=== PATIENT | female | born 2000 | race Caucasian/White ===

== ENCOUNTER 2023-10-28 15:07 | Inpatient (IN) | payer BC, SELFPAY ==
[2023-10-28] VITALS (16 sets, daily range): BP systolic 109–139; BP diastolic 65–79; PULSE 113–148; RESP 18–38; TEMP 36.3–38.9; O2SAT 88–100; BMI 44.5
--- NOTE | ~2023-10-28 | US_ITS ---
EXAMINATION: US TRIPLEX LOWER EXTREMITY, BILATERAL CLINICAL INFORMATION: r/o DVT COMPARISON: None available. TECHNIQUE: Color-flow triplex imaging with spectral analysis and compression Doppler were performed on the bilateral lower extremities. FINDINGS: Respiratory variation, normal compression and augmented flow are noted throughout the bilateral lower extremities. The visualized common femoral vein, superficial femoral vein, profunda femoral vein, popliteal vein and midcalf peroneal and posterior tibial venous segments show no evidence of deep venous thrombosis bilaterally. There is no Holm's cyst. US/US venous duplex LE BI IMPRESSION: No evidence of deep venous thrombosis involving the bilateral lower extremities. Electronically signed by: Flo Tellez MD 10/28/2023 08:35 PM EDT
--- NOTE | ~2023-10-28 | CT_ITS ---
EXAMINATION: CT ANGIOGRAM CHEST CLINICAL INFORMATION: Hypoxia, tachycardia COMPARISON: None available. TECHNIQUE: Multiple axial images were obtained through the chest after the administration of 65 mL of Omnipaque 350 intravenous contrast. Multiplanar reconstructions. This CT examination was performed using dose optimization techniques as appropriate, variously including the following: *Automated exposure control *Adjustment of mA and/or kV according to patient size (this includes techniques or standardized protocols for targeted exams where dose is matched to indication/reason for exam; i.e. extremities or head) *Use of iterative reconstruction technique DLP: 493 mGy-cm FINDINGS: PULMONARY ARTERIES: There is significant respiratory motion artifact, markedly degrading images. The pulmonary arteries are suboptimally and not reliably evaluated. No obvious large filling defect is identified in the central pulmonary vasculature.. LUNG: There are extensive areas of confluent airspace disease seen in bilateral hemithoraces, including extensive areas in the right upper and middle lobes, bilateral lower lobes, in the lingula. Imaging findings are nonspecific. Differential considerations include etiologies such as pulmonary edema, inflammatory/ infectious process, ARDS. PLEURA: No pleural effusion or pneumothorax. MEDIASTINUM: Heart size is borderline prominent. No pericardial effusion. No hilar or mediastinal lymphadenopathy. VASCULAR: Normal caliber aorta. No obvious dissection is seen. CHEST WALL/AXILLA: No axillary or internal mammary lymphadenopathy. OSSEOUS STRUCTURES: Multilevel mild endplate degenerative changes. No acute fracture seen. UPPER ABDOMEN: No reflux of contrast in the IVC or hepatic veins to suggest increased pressures. No acute findings seen in the visualized upper abdominal structures. CT/CT angio chest PE protocol IMPRESSION: 1. Significant artifact markedly degrading images, limiting evaluation. Evaluation for pulmonary embolism is very limited. Recommend repeat study. No obvious large embolus is seen in the central pulmonary vasculature. 2. Extensive confluent airspace opacities in bilateral hemithoraces, of uncertain etiology. Differential considerations include ARDS, pulmonary edema, inflammatory, infectious processes among other etiologies. Clinically correlate. Follow-up imaging for reassessment as clinically warranted. 3. Additional findings and details above. Result and recommendations was discussed with at 6:22 PM on 12/27/2022 and it was ascertained that the content and urgency of the report was understood at the time of direct communication. Fleischner guidelines were followed. Electronically signed by: Scotty Sumner MD 10/28/2023 06:23 PM EDT RP
--- NOTE | ~2023-10-28 | CT_ITS ---
EXAMINATION: CT ANGIOGRAM CHEST CLINICAL INFORMATION: Tachycardia. Hypoxia. Evaluate for pulmonary embolus in. COMPARISON: CTA chest dated 10/28/2023. TECHNIQUE: Prior to contrast administration, noncontrast localization images were obtained. Subsequently, multidetector volumetric imaging was performed from the thoracic inlet to below the diaphragms following the administration of 70 mL Omnipaque 350 intravenous contrast. No contrast reaction reported Sagittal, coronal, and MIP oblique sagittal reformatted images were obtained on the CT workstation, uploaded to PACS, and reviewed. This CT examination was performed using dose optimization techniques as appropriate, variously including the following: *Automated exposure control *Adjustment of mA and/or kV according to patient size (this includes techniques or standardized protocols for targeted exams where dose is matched to indication/reason for exam; i.e. extremities or head) *Use of iterative reconstruction technique DLP: 518 mGy-cm FINDINGS: QUALITY OF STUDY/CONTRAST BOLUS: Satisfactory. PULMONARY ARTERIES: No pulmonary emboli. THORACIC AORTA: No aneurysm. LUNG: Patchy bilateral airspace opacities with air programs, significantly decreased when compared to the CT chest dated 10/28/2023. No new airspace consolidation. The central airways are patent. PLEURA: No pleural effusion or pneumothorax. MEDIASTINUM: Normal heart size. No pericardial effusion. No hilar or mediastinal lymphadenopathy. No evidence of septal bowing or right heart strain. CORONARY ARTERY CALCIFICATION: None visualized on this study. CHEST WALL/AXILLA: No axillary or internal mammary lymphadenopathy. OSSEOUS STRUCTURES: No acute or suspicious osseous abnormality. UPPER ABDOMEN: Unremarkable. No reflux of contrast into the hepatic veins to suggest elevated right heart pressures. CT/CT angio chest PE protocol IMPRESSION: 1. No pulmonary embolism. 2. Patchy bilateral airspace opacities with air programs, significantly decreased when compared to the CT chest dated 10/28/2023. No new airspace consolidation. VTE: negative. Fleischner guidelines were followed. Electronically signed by: Osvaldo Mckeon MD 11/06/2023 11:10 AM EDT
--- NOTE | 2023-10-28 15:13 | ECG_ITS ---
Test Reason : SOB Blood Pressure : / mmHG Vent. Rate : 141 BPM Atrial Rate : 141 BPM P-R Int : 120 ms QRS Dur : 084 ms QT Int : 278 ms P-R-T Axes : 035 060 037 degrees QTc Int : [address] elevation in Inferior leads ST elevation in Lateral leads Abnormal ECG No previous ECGs available Referred By: Waleska Peralta Electronically Signed By:HERNESTO CESAR
[2023-10-28] MEDS: levalbuterol HCL 5 MG, Ipratropium Bromide 0.5 MG INHALE (15:51)
--- NOTE | 2023-10-28 15:55 | ED_ITS ---
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 She went to urgent care today and they found her sats to be 55% on RA - they obtained a covid test / flu test which was negative. EMS was called and patient was maintained on NRB with sats in 70s. Vania denies a hx of OCP use, prior clots, recent travel or hotel stay. She is not immunocompromised. She has had 4 COVID vaccines. She notes she is in college right now so everyone is sick. On arrival to ED required 80% NIPPV to maintain sats > 90% otherwise sats in 70s. Sent over for STAT CTA MD elicited complaint: shortness of breath Onset (ago): week(s) (1) Context: recent illness Timing: progressively worsening Severity: severe Exacerbating factors: exertion, movement and coughing Relieving factors: oxygen and rest Associated symptoms: fever, cough, sputum production, nausea/vomiting and sense of impending doom Treatment prior to arrival: oxygen Related Data Home Medications ?Medication ?Instructions ?Recorded ?Confirmed citalopram 40 mg tablet 40 mg PO DAILY 10/28/23 10/28/23 ibuprofen 200 mg tablet 200 mg PO Q6H PRN Pain 10/28/23 10/28/23 Allergies Allergy/AdvReac Type Severity Reaction Status Date / Time No Known Allergies Allergy Verified 10/28/23 15:13 Review of Systems 2 Review of Systems: Constitutional : pos Fever, pos Chills ENT/Mouth : No sore throat, No Rhinorrhea, No Swallowing Difficulty Eyes: No Eye Pain, No Swelling, No Redness Cardiovascular : No Chest Pain, positive SOB, No Orthopnea, no Edema Respiratory : pos Cough, pos Sputum, No Wheezing, positive dyspnea Gastrointestinal : pos Nausea, No Vomiting, No Diarrhea, No abdominal Pain, No Hematochezia, No Melena Genitourinary : No Dysuria, No Urinary Frequency, No Hematuria Musculoskeletal : No joint pain, pos Myalgias Skin : No Skin Lesions, No rash Neuro : No Weakness, No Numbness, No Dizziness, No Headache Psych : No Anxiety/Panic, No Depression All other systems reviewed and are negative [facility] Past Medical History Attestation statement: The following information was validated with the patient. Source: old records reviewed Medical History Brain tumor Social History Social History (Updated 10/28/23 @ 16:56 by Waleska Peralta DO) Patient Tobacco Use Status: Never used Tobacco Advance Directives: No Advance Directives Information Provided: No Do you have a plan to hurt others: No Plan Patient : No Physical Exam 2 Vital Signs: Vital Signs: Last Vital Signs Temp 98.6 F 10/28/23 18:05 Pulse 123 H 10/28/23 18:05 Resp 29 H 10/28/23 18:05 BP 118/65 10/28/23 18:05 Pulse Ox 94 10/28/23 18:05 O2 Del Method CPAP 10/28/23 18:05 FiO2 100 10/28/23 17:53 BMI result Body Mass Index 44.5 Appearance: Alert. Oriented X3. Moderate acute distress. Eyes: Pupils equal, round and reactive to light. ENT: Pharynx normal. Neck: Normal inspection. Neck supple. CVS: tachycardic heart rate and rhythm. Pulses normal. Respiratory: Moderate respiratory distress. Breath sounds coarse and diminished throughout she is labored and tachypneic with retractions and can only speak 2 to 3 words at a time Abdomen: Soft and nontender. Skin: Skin hot to touch and dry. pale skin color. Normal skin turgor. Extremities: No lower extremity edema. Neuro: Oriented X 3. No motor deficit. No sensory deficit. Course Course Course Narrative: signed out to Dr. Pizano following repeat labs and admission 10/28/2023 at 19:03 hours,Dr. Be Pizano's note: I did speak to the [facility] radiologist regarding the CT pulmonary angiogram PE protocol. He states that the study was nondiagnostic for pulmonary embolism secondary to respiratory artifact and he recommended repeating the study if pulmonary embolism was still considered. I did review the reading below. He states the patient had diffuse bilateral infiltrates consistent with an ARDS pattern. I did discuss this over tiger text with our diesel trailer mechanic, Dr. Barcenas and the patient has been accepted into the intensive care unit for further management. I also discuss this finding with the patient and the patient's family and I do not think that the patient has a pulmonary embolism at this time and more likely has atypical versus viral pneumonia causing ARDS patient did have a elevated initial troponin of 476 with a repeat 2 hour troponin of 442 which is not a greater than 50% delta suggesting that the patient has type 2 injury most likely secondary to hypoxia. CT angio chest PE protocol IMPRESSION: 1. Significant artifact markedly degrading images, limiting evaluation. Evaluation for pulmonary embolism is very limited. Recommend repeat study. No obvious large embolus is seen in the central pulmonary vasculature. 2. Extensive confluent airspace opacities in bilateral hemithoraces, of uncertain etiology. Differential considerations include ARDS, pulmonary edema, inflammatory, infectious processes among other etiologies. Clinically correlate. Follow-up imaging for reassessment as clinically warranted. 3. Additional findings and details above. Result and recommendations was discussed with at 6:22 PM on 12/27/2022 and it was ascertained that the content and urgency of the report was understood at the time of direct communication. Fleischner guidelines were followed. Electronically signed by: Scotty Sumner MD 10/28/2023 06:23 PM EDT Dictated By: Scotty Sumner MD Medications Administered Discontinued Medications Generic Name Dose Route Start Last Admin Trade Name Freq PRN Reason Stop Dose Admin Levalbuterol HCl 5 mg/ 0 mg 10/28/23 15:22 10/28/23 15:51 Ipratropium Bascom 0.5 mg INHALE 10/28/23 15:23 1 dose ONCE ONE Administration Dexamethasone Sodium Phosphate 6 mg 10/28/23 15:22 10/28/23 16:16 Dexamethasone Sod Phosphate 4 Mg/Ml Vial IVPUSH 10/28/23 15:23 6 mg ONCE ONE Administration Cefepime HCl 2 gm/ Sodium 50 mls @ 100 mls/hr 10/28/23 15:18 10/28/23 17:15 Chloride IV 10/28/23 15:47 Infused ONCE ONE Infusion Acetaminophen 1,000 mg in 100 mls @ 400 mls/hr 10/28/23 15:18 10/28/23 16:34 Ofirmev IV 10/28/23 15:32 Infused ONCE ONE Infusion Lactated Ringer's 500 mls @ 999 mls/hr 10/28/23 15:55 10/28/23 17:42 Lr IV 10/28/23 16:25 Infused .Q31M ONE Infusion Vancomycin HCl 2,000 mg in 500 mls @ 250 mls/hr 10/28/23 15:58 10/28/23 16:54 Vancomycin/Ns IV 10/28/23 17:57 250 mls/hr ONCE ONE Administration Iohexol 65 ml 10/28/23 16:00 10/28/23 16:01 Iohexol 350 Mg/Ml 100 Ml Infus..Btl IV 10/28/23 16:01 65 ml ONCE ONE Administration Medical Decision Making Medical Decision Making MDM Narrative: 23 yo female with PMH of 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 The patient received IV steroids on arrival 6mg dexamethasone in case this is COVID or pneumonitis, empiric cefepime and vancomycin (post flu pneumonia). She did not tolerate O2 other than pressure supported. Planned admit to ICU. Has elevated troponin no signs of pedal edema on arrival and no hx of CHF though could have a myocarditis - troponin could also be elevated due to her prolonged hypoxia. [phone] Dr. Radha Groves die grinder provided significant amount of information over the phone last chemo 09/29 Stable MRI yearly every september including 10/07. 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 Barcenas aware 430pm bed not available in our ICU until 7pm) Lab Data MDM Lab Attestation statement: I reviewed the patient's lab results. 10/28/23 15:53 10/28/23 15:53 Labs: Lab Results 10/28/23 10/28/23 10/28/23 Range/Units 15:53 15:54 16:07 WBC 17.0 H (4.8-10.8) X10*3/uL RBC 4.53 (4.20-5.50) X10*6/uL Hgb 10.5 L (12.0-16.0) g/dl Hct 33.8 L (37.0-47.0) % MCV 74.6 L (80.0-98.0) fL MCH 23.2 L (27.0-33.0) pg MCHC 31.1 (31.0-35.0) g/dl RDW 18.0 H (11.0-16.0) % Plt Count 312 (160-400) X10*3/uL MPV 11.4 (9.4-12.3) fL Immature Gran % (Auto) Cancelled Neut % (Auto) Cancelled Lymph % (Auto) Cancelled [place] % (Auto) Cancelled Eos % (Auto) Cancelled Baso % (Auto) Cancelled Lymph # (Auto) Cancelled [place] # (Auto) Cancelled Eos # (Auto) Cancelled Baso # (Auto) Cancelled Abs Immat Gran (auto) Cancelled Absolute Neuts (auto) Cancelled Absolute Nucleated RBC 0.080 H (0.0-0.012) X10*3/uL Nucleated RBC % (auto) 0.5 H (0.0-0.2) /100WBC Neutrophils % (Manual) 72 (45-73) % Band Neutrophils % 7 H (3-5) % Lymphocytes % (Manual) 12 L (20-40) % Monocytes % (Manual) 8 (2-11) % Basophils % (Manual) 1 (0-2) % Abs Neuts (Manual) 13.4 H (2.0-8.3) X10*3/uL Lymphocytes # (Manual) 2.0 (1.2-4.9) X10*3/uL Monocytes # (Manual) 1.4 H (0.1-1.2) X10*3/uL Basophils # (Manual) 0.2 (0.0-0.2) X10*3/uL Platelet Estimate NORMAL (NORMAL) Plt Morphology Comment NORMAL RBC Morphology NORMAL PT 14.6 H (11.1-13.3) SEC INR 1.2 H (0.9-1.1) O2 Saturation 91.0 % ABG pH at Pt Temp 7.43 (7.35-7.45) ABG pCO2 at Pt Temp 44 (32-45) mmHg ABG pO2 at Pt Temp 68 L (83-108) mmHg ABG HCO3 29 H (22-26) mmol/L ABG Base Excess (Actual) 4.6 mmol/L VBG pH 7.38 (7.32-7.43) VBG pCO2 49 mmHg VBG pO2 63 mmHg VBG HCO3 30 H (22-26) mmol/L VBG O2 Saturation 88.0 % VBG Base Excess 4.1 mmol/L Sodium 138 (135-145) mmol/L Potassium 4.4 (3.3-5.1) mmol/L Chloride 98 (96-108) mmol/L Carbon Dioxide 27 (22-29) mmol/L Anion Gap 17 (12-20) BUN 32 H (9-16) mg/dL Creatinine 0.91 (0.5-1.4) mg/dL Estim Creat Clear Calc 127.7 Estimated GFR > 60 Random Glucose 120 H (60-115) mg/dL Lactic Acid 1.5 (0.5-2.0) mmol/L Calcium 8.7 (8.4-10.2) mg/dL Magnesium 2.6 (1.6-2.6) mg/dL Total Bilirubin 0.4 (0.0-1.0) mg/dL Direct Bilirubin 0.3 (0.0-0.5) mg/dL AST 354 H (5-31) U/L ALT 203 H (0-31) U/L Alkaline Phosphatase 59 (39-117) U/L Troponin I High Sens 476.7 H* (<3.5-17.0) ng/L C-Reactive Protein 39.82 H (< or = 0.50) mg/dL B-Natriuretic Peptide 428 H (<100) pg/mL Total Protein 6.8 (6.5-8.0) g/dL Albumin 3.2 L (3.5-5.0) g/dL Lipase 9 (8-78) U/L Urine Color Urine Appearance Urine pH (5.0-9.0) Ur Specific [place] (1.005-1.025) Urine Protein (Neg-Trace) mg/dL Urine Glucose (UA) (Negative) mg/dL Urine Ketones (Negative) mg/dL Urine Blood (Negative) Urine Nitrite (Negative) Ur Leukocyte Esterase (Negative) Influenza Type A (PCR) NEGATIVE (Negative) Influenza Type B (PCR) NEGATIVE (Negative) RSV RNA Qual (PCR) NEGATIVE (Negative) SARS-CoV-2 RNA (RT-PCR) NEGATIVE (Negative) 10/28/23 10/28/23 Range/Units 17:14 18:39 WBC (4.8-10.8) X10*3/uL RBC (4.20-5.50) X10*6/uL Hgb (12.0-16.0) g/dl Hct (37.0-47.0) % MCV (80.0-98.0) fL MCH (27.0-33.0) pg MCHC (31.0-35.0) g/dl RDW (11.0-16.0) % Plt Count (160-400) X10*3/uL MPV (9.4-12.3) fL Immature Gran % (Auto) Neut % (Auto) Lymph % (Auto) [place] % (Auto) Eos % (Auto) Baso % (Auto) Lymph # (Auto) [place] # (Auto) Eos # (Auto) Baso # (Auto) Abs Immat Gran (auto) Absolute Neuts (auto) Absolute Nucleated RBC (0.0-0.012) X10*3/uL Nucleated RBC % (auto) (0.0-0.2) /100WBC Neutrophils % (Manual) (45-73) % Band Neutrophils % (3-5) % Lymphocytes % (Manual) (20-40) % Monocytes % (Manual) (2-11) % Basophils % (Manual) (0-2) % Abs Neuts (Manual) (2.0-8.3) X10*3/uL Lymphocytes # (Manual) (1.2-4.9) X10*3/uL Monocytes # (Manual) (0.1-1.2) X10*3/uL Basophils # (Manual) (0.0-0.2) X10*3/uL Platelet Estimate (NORMAL) Plt Morphology Comment RBC Morphology PT (11.1-13.3) SEC INR (0.9-1.1) O2 Saturation % ABG pH at Pt Temp (7.35-7.45) ABG pCO2 at Pt Temp (32-45) mmHg ABG pO2 at Pt Temp (83-108) mmHg ABG HCO3 (22-26) mmol/L ABG Base Excess (Actual) mmol/L VBG pH (7.32-7.43) VBG pCO2 mmHg VBG pO2 mmHg VBG HCO3 (22-26) mmol/L VBG O2 Saturation % VBG Base Excess mmol/L Sodium (135-145) mmol/L Potassium (3.3-5.1) mmol/L Chloride (96-108) mmol/L Carbon Dioxide (22-29) mmol/L Anion Gap (12-20) BUN (9-16) mg/dL Creatinine (0.5-1.4) mg/dL Estim Creat Clear Calc Estimated GFR Random Glucose (60-115) mg/dL Lactic Acid (0.5-2.0) mmol/L Calcium (8.4-10.2) mg/dL Magnesium (1.6-2.6) mg/dL Total Bilirubin (0.0-1.0) mg/dL Direct Bilirubin (0.0-0.5) mg/dL AST (5-31) U/L ALT (0-31) U/L Alkaline Phosphatase (39-117) U/L Troponin I High Sens 442.8 H* (<3.5-17.0) ng/L C-Reactive Protein (< or = 0.50) mg/dL B-Natriuretic Peptide (<100) pg/mL Total Protein (6.5-8.0) g/dL Albumin (3.5-5.0) g/dL Lipase (8-78) U/L Urine Color Yellow Urine Appearance Clear Urine pH 6.0 (5.0-9.0) Ur Specific [place] >= 1.030 H (1.005-1.025) Urine Protein 30 (1+) H (Neg-Trace) mg/dL Urine Glucose (UA) Negative (Negative) mg/dL Urine Ketones Negative (Negative) mg/dL Urine Blood Small (1+) H (Negative) Urine Nitrite Negative (Negative) Ur Leukocyte Esterase Negative (Negative) Influenza Type A (PCR) (Negative) Influenza Type B (PCR) (Negative) RSV RNA Qual (PCR) (Negative) SARS-CoV-2 RNA (RT-PCR) (Negative) Independent Interpretation I performed an independent interpretation of an: EKG and CT Scan (bilateral multifocal pneumonia, no saddle emobolus seen) Interpretation: Rate: 141 Rhythm: sinus tachycardia [place]: noraml Normal P waves. Normal NATASHA. Normal QRS complex. ST T wave : no JC qTC: 425 prior studies: no prior The study has been interpreted contemporaneously by me. . Independent Historian Clinical information obtained from an independent historian. History obtained from or confirmed by: EMS Procedures Procedure Narrative Procedure Narrative: Ultrasound-guided peripheral IV October 28, 2023, 4:40 p.m. Indication: Difficult to access, RN able to obtain. Imaging studies needed. 18 gauge needle, 2-1/2 inch Right brachial Obtained on 1st attempt. Secured and flushed. RN notified. EJ/Peripheral Line Arm L: Time Out Performed: Yes Size (gauge): 20 IV Secured and Dressing Applied: Yes Patient Tolerated Procedure: well and no complications Arm R: Time Out Performed: Yes Skin Cleansed in Sterile Fashion: Yes Size (gauge): 18 IV Secured and Dressing Applied: Yes Patient Tolerated Procedure: well and no complications Critical Care Time Critical Care Time Critical Care Time: Yes Total Critical Care Time: 60 Attestation: hypoxia correction with NIPPV, interpretation of abg, consult with diesel trailer mechanic, STAT CTA for concern for VTE and saddle as cause Discharge Plan Discharge Clinical Impression: Hypoxia, Multifocal pneumonia Elevated WBC count Qualifiers: Leukocytosis type: bandemia Qualified Code(s): D72.825 - Bandemia Fever Qualifiers: Fever type: unspecified Qualified Code(s): R50.9 - Fever, unspecified Patient Disposition: Admitted As Inpatient Print Language: Tajik
[2023-10-28] MEDS: iohexoL 350 MG/ML 100 ML INFUS..BTL 65 ML IV (16:01)
[2023-10-28 16:03] LABS: ABG Base Excess 4.6 mmol/L; ABG HCO3 29 mmol/L (22-26); ABG pCO2 44 mmHg (32-45); ABG pH 7.43 (7.35-7.45); ABG pO2 68 mmHg (83-108)
[2023-10-28 16:10] LABS: Hematocrit 33.8 % (37.0-47.0); Hemoglobin 10.5 g/dl (12.0-16.0); Mean Corpuscular HGB Conc 31.1 g/dl (31.0-35.0); Mean Corpuscular Hemoglobin 23.2 pg (27.0-33.0); Mean Corpuscular Volume 74.6 fL (80.0-98.0); Mean Platelet Volume 11.4 fL (9.4-12.3); NRBC Pct Auto 0.5 /100WBC (0.0-0.2); Platelet Count 312 X10*3/uL (160-400); Red Blood Count 4.53 X10*6/uL (4.20-5.50)
[2023-10-28 16:11] LABS: VBG Base Excess 4.1 mmol/L; VBG HCO3 30 mmol/L (22-26); VBG pCO2 49 mmHg; VBG pH 7.38 (7.32-7.43); VBG pO2 63 mmHg
[2023-10-28] MEDS: Acetaminophen 1,000 MG/100 ML PIGGYBACK 400 MG IV (16:13)
[2023-10-28] MEDS: Lactated Ringers 500 ML 999 ML IV (16:14)
[2023-10-28] MEDS: dexAMETHasone sod phosphate 4 MG/ML VIAL 6 MG IVPUSH (16:16)
--- NOTE | 2023-10-28 16:18 | PC.RT ---
PT came in via EMS on CPAP 15L, SATs 85%, RR >40. Pt switched over to V60 BIPAP 18/10 100% by RT, SATs improved to low 90's. Pt brought to CT scan on BIPAP, teto well for approx 30 min. Pt brought back to ED room 4, SATs on BIPAP 18/10 80% were 96%. ABG drawn and results given to MD Peralta 7.42-43.7-68.1-28.9. Bronch protocol performed by RT, lungs tight and restricted, given xopenex and atrovent as documented. Pt is currently resting on BIPAP 18/10 80%, SATs 94% HR 140 RR 35. Will continue to monitor and make changes as appropriate.
[2023-10-28 16:19] LABS: INTERNATIONAL NORM RATIO 1.2 (0.9-1.1); Prothrombin Time 14.6 SEC (11.1-13.3)
[2023-10-28 16:24] LABS: Lactic Acid 1.5 mmol/L (0.5-2.0)
[2023-10-28 16:26] LABS: Venous Blood Gas Refer to POC result
[2023-10-28] MEDS: cefEPime HCl 2 GM in 0.9 % Sodium Chloride 50 ML IV (16:33)
[2023-10-28 16:36] LABS: B Type Natriuretic Peptide 428 pg/mL (<100)
[2023-10-28 16:44] LABS: Band Neutrophils Percent 7 % (3-5); Basophils Abs Manual 0.2 X10*3/uL (0.0-0.2); Basophils Percent Manual 1 % (0-2); Lymphocytes Percent Manual 12 % (20-40); Monocytes Absolute Manual 1.4 X10*3/uL (0.1-1.2); Monocytes Percent Manual 8 % (2-11); Neutrophils Absolute Manual 13.4 X10*3/uL (2.0-8.3); Neutrophils Percent Manual 72 % (45-73)
[2023-10-28 16:46] LABS: Platelet Estimate NORMAL (NORMAL); Platelet Morphology Comment NORMAL; RBC Morphology NORMAL
[2023-10-28 16:47] LABS: Troponin-I High Sensitivity 476.7 ng/L (<3.5-17.0)
[2023-10-28] MEDS: vancomycin/NS 2,000 MG/500 ML PLAST..BAG 250 MG IV (16:54)
--- NOTE | 2023-10-28 17:23 | PHA.MEDREC ---
Pharmacy Consult ? Medication Reconciliation Pharmacy has completed the medication reconciliation. Spoke to patient and confirmed medication list.
[2023-10-28 17:31] LABS: Influenza A PCR NEGATIVE (Negative); Influenza B PCR NEGATIVE (Negative); Resp Syncy Virus RNA Qual PCR NEGATIVE (Negative); SARS COV2 PCR INHOUSE NEGATIVE (Negative)
[2023-10-28 18:04] LABS: Troponin-I High Sensitivity 442.8 ng/L (<3.5-17.0)
[2023-10-28 18:49] LABS: Appearance Urine Clear; Color Urine Yellow; Glucose Urine UA Negative (Negative); Leukocyte Esterase Urine Negative (Negative); Nitrite Urine Negative (Negative); Specific Gravity - Urine >= 1.030 (1.005-1.025); UMIC TRIGGER UACC YES; Urine Blood Small (1+) (Negative); Urine Ketones Negative (Negative); Urine Protein 30 (1+) mg/dL (Neg-Trace)
[2023-10-28 18:50] LABS: Alanine Aminotransferase 203 U/L (0-31); Albumin Level 3.2 g/dL (3.5-5.0); Alkaline Phosphatase 59 U/L (39-117); Anion Gap 17 (12-20); Aspartate Amino Transferase 354 U/L (5-31); Bilirubin Direct 0.3 mg/dL (0.0-0.5); Bilirubin Total 0.4 mg/dL (0.0-1.0); Blood Urea Nitrogen 32 mg/dL (9-16); C Reactive Protein 39.82 mg/dL (< or = 0.50); Calcium 8.7 mg/dL (8.4-10.2); Carbon Dioxide 27 mmol/L (22-29); Chloride 98 mmol/L (96-108); Creatinine Clr Calc Pharmacy 127.7; Estimated Glomerular Filt Rate > 60; Glucose Random 120 mg/dL (60-115); Lipase 9 U/L (8-78); Magnesium 2.6 mg/dL (1.6-2.6); Potassium 4.4 mmol/L (3.3-5.1); Sodium 138 mmol/L (135-145); Total Protein 6.8 g/dL (6.5-8.0)
[2023-10-28 19:07] LABS: Bacteria Urine 4+ (None Seen); Hyaline Casts Urine 0-2 /LPF (0-2); WBC Urine 0-5 /HPF (0-5)
--- NOTE | 2023-10-28 19:24 | MHC.EDTECH ---
This pct assumed care of patient at 1900 ,vitals taken ,patient belonigs list done ,Pt mom is talking pt belongings home ,except for cell phone and medical representative .
[2023-10-28 19:33] LABS: Procalcitonin 2.25 ng/mL
--- NOTE | 2023-10-28 20:18 | P.HPCC_ITS ---
History of Present Illness Date of Service: 10/28/23 Attending physician on admission: Cas Barcenas Chief Complaint: Sob HPI: ?23-year-old female who is not able to give a history at this point.? Majority of the history obtained from the patient's mother who is at bedside.? Patient has an underlying 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 Postop complications of her glioma included NPH for which she had a HEEL CEMENTER shunt placement.? 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 Patient is a college student, had reported to mom to have a cough, malaise for about a week, she finallywas able to go to the [facility] and she was found to be significantly ill therefore she was transferred to emergency room. In the ER she was noted to be hypoxic at 88% a room air, tachycardic 146 febrile with 102 degrees F.? Subsequently she became tachypneic at 30 breaths per minute.? Due to her respiratory distress patient was placed on CPAP and then switched to BiPAP. Initial gas showed pH was 7.3 and CO2 44 and pO2 of 68. Patient's workup revealed white count 74832, H and H of 10.5 and 33.8 respectively.? Bandemia of 7. ?Sodium 130, potassium 4.4, chloride 98, BUN 32, creatinine 0.91.? Random glucose 120.? SAT 54, ALT 203, troponin were 76 and 442, CRP 39 point 8, BNP 428, albumin 3.2. ?Respiratory panel negative for COVID. She underwent a CT angiogram, read as a limited study due to artifact.? No obvious large emboli.? Extensive confluent airspace opacity and bilateral hemithoraces of uncertain etiology.? Differential diagnosis ARDS, pulmonary edema, inflammatory, infectious process among others.? Recommendation was made to repeat the study in 24 hours. Patient was treated with vancomycin and cefepime, only 500 cc of fluids were given due to risk of fluid overload.? Currently the patient is arousable with light touch, follows basic commands although she is somewhat slow in comparison to her baseline but likely due to tiredness, otherwise able to answer yes and no questions and do basic maneuvers but unable to give a history. Patient will be transferred to the ICU for further care. Review of Systems 2 Review of Systems: Yes Unobtainable due to mental condition (on bipap) [facility] Past Medical History Medical History Brain tumor Social History Social History Household Members: Other Household Members Other:: from home with parents/sibling; at college/dorm currently Housing: House Do you presently have visiting nurse or other home services: No Patient Tobacco Use Status: Never used Tobacco Smoked in Last 30 Days: No e-Cigarette/Vaping Use: Never Used Use of substances other than those prescribed or required for medical reasons: No Currently Displaying Signs/Symptoms of Drug Intoxication Withdrawal: No Any prior treatment program specific to substance use: No Have you been hit, kicked, punched, or otherwise hurt by someone within the past year? If so, by whom?: No Do you feel safe in your current relationship?: No Current Relationship Is there a partner from a previous relationship who is making you feel unsafe now?: No Are you made to feel afraid or neglected: No [facility] Pract[facility]: [facility] Advance Directives: No Advance Directives Information Provided: No Do you have a plan to hurt others: No Plan Recently lost weight without trying: No Nutrition Risks: No Nutritional Risk Patient : No : No Poor oral hygiene: No Travel History Ebola Risk: Travel/Contact With Anyone From Affected Area/s: No Meds Allergies Allergy/AdvReac Type Severity Reaction Status Date / Time No Known Allergies Allergy Verified 10/28/23 15:13 Active Medications: Current Medications Albuterol Sulfate (Albuterol Sulfate (0.083%) 2.5 Mg/3 Ml Vial.Neb) 2.5 mg INHALE Q2H PRN PRN Reason: Wheezing Albuterol/Ipratropium (Albuterol/Iprat 2.5/0.5mg 3 Ml Ampul.Neb) 3 ml INHALE Q6H TOM Apixaban (Apixaban 5 Mg Tablet) 10 mg PO BID TOM Stop: 11/04/23 09:01 Azithromycin 500 mg/ Sodium (Chloride) 250 mls @ 125 mls/hr IV Q24H TOM Ceftriaxone Sodium 1 gm/ (Sodium Chloride) 50 mls @ 100 mls/hr IV Q24H TOM Lactated Ringer's (Lr) 1,000 mls @ 100 mls/hr IVCONT .Q10H [facility] Methylprednisolone Sodium Succinate (Methylprednisolone Sod Succ 125 Mg/2 Ml Vial) 60 mg IVPUSH Q8H [facility] Home Medications ?Medication ?Instructions ?Recorded ?Confirmed ?Last Taken ?Type citalopram 40 mg tablet 40 mg PO DAILY 10/28/23 10/28/23 10/27/23 History ibuprofen 200 mg tablet 200 mg PO Q6H PRN Pain 10/28/23 10/28/23 Unknown History Physical Exam 2 Vital Signs: Vital Signs: Last Vital Signs Temp 97.7 F 10/28/23 19:54 Pulse 121 H 10/28/23 19:54 Resp 24 H 10/28/23 19:54 BP 109/72 10/28/23 19:54 Pulse Ox 94 10/28/23 19:54 O2 Del Method BiPAP 10/28/23 19:54 FiO2 100 10/28/23 19:54 BMI result Body Mass Index 44.5 Sepsis exam done at 1999 On BiPAP support at 18 over 10, backup rate of 20 breathing at 32, FiO2 100% satting 92% VS: ?109/72, 121, 24, 97.7, 94% on BiPAP General:? Alert oriented; seems tired.? Answers yes and no questions.? Following all commands. Skin:? 2+ stenting throughout upper and lower extremities, no edema Intact, no lesions, edema, erythema, clubbing or cyanosis.? No ulcers. HEENT:? Head is normocephalic, atraumatic, pupils equal round. On BiPAP, oral mucosa dry. Neck is supple without lymphadenopathy. Cardiac:? Tachycardic 110 beats per minute, no murmurs, rubs or gallops. ? Pulmonary: ?Diminished lung sounds bilaterally with coarseness and rhonchi at both bases right greater than left.? No crackles.? Minimal expiratory wheezing anteriorly only. Abdomen:? Protuberant, positive bowel sounds in all 4 quadrants.? Soft, nontender, no rebound or guarding.? Musculoskeletal:? Moving all 4 extremities upon request a major joints, there is no crepitus or tenderness.? The strength is 5/5 bilaterally and throughout all 4 extremities.? There is no leg edema , no calf tenderness , no leg asymmetry.? Gait not assessed at this point. Neurologic:? As above, cranial nerves 2-12 are grossly intact.? No focal deficits noted. Vascular:? 2+ pulses upper and lower extremities distally. ?Less than 2nd capillary refill of the finger and toes bilaterally upper and lower extremities. Results Labs 10/29/23 05:33 10/29/23 05:33 Labs: Laboratory Results - last 24 hr 10/28/23 10/28/23 10/28/23 15:53 15:54 16:07 MCV 74.6 L MCH 23.2 L MCHC 31.1 RDW 18.0 H Plt Count 312 MPV 11.4 Immature Gran % (Auto) Cancelled Neut % (Auto) Cancelled Lymph % (Auto) Cancelled [place] % (Auto) Cancelled Eos % (Auto) Cancelled Baso % (Auto) Cancelled Lymph # (Auto) Cancelled [place] # (Auto) Cancelled Eos # (Auto) Cancelled Baso # (Auto) Cancelled Abs Immat Gran (auto) Cancelled Absolute Neuts (auto) Cancelled Absolute Nucleated RBC 0.080 H Nucleated RBC % (auto) 0.5 H Neutrophils % (Manual) 72 Band Neutrophils % 7 H Lymphocytes % (Manual) 12 L Monocytes % (Manual) 8 Basophils % (Manual) 1 Abs Neuts (Manual) 13.4 H Lymphocytes # (Manual) 2.0 Monocytes # (Manual) 1.4 H Basophils # (Manual) 0.2 Platelet Estimate NORMAL Plt Morphology Comment NORMAL RBC Morphology NORMAL PT 14.6 H INR 1.2 H O2 Saturation 91.0 ABG pH at Pt Temp 7.43 ABG pCO2 at Pt Temp 44 ABG pO2 at Pt Temp 68 L ABG HCO3 29 H ABG Base Excess (Actual) 4.6 VBG pH 7.38 VBG pCO2 49 VBG pO2 63 VBG HCO3 30 H VBG O2 Saturation 88.0 VBG Base Excess 4.1 Anion Gap 17 Estim Creat Clear Calc 127.7 Estimated GFR > 60 Random Glucose 120 H Lactic Acid 1.5 Calcium 8.7 Magnesium 2.6 Total Bilirubin 0.4 Direct Bilirubin 0.3 AST 354 H ALT 203 H Alkaline Phosphatase 59 Troponin I High Sens 476.7 H* C-Reactive Protein 39.82 H B-Natriuretic Peptide 428 H Total Protein 6.8 Albumin 3.2 L Lipase 9 Procalcitonin 2.25 Urine Color Urine Appearance Urine pH Ur Specific [place] Urine Protein Urine Glucose (UA) Urine Ketones Urine Blood Urine Nitrite Ur Leukocyte Esterase Urine RBC Urine WBC Ur Squamous Epith Cells Urine Bacteria Hyaline Casts Influenza Type A (PCR) NEGATIVE Influenza Type B (PCR) NEGATIVE RSV RNA Qual (PCR) NEGATIVE SARS-CoV-2 RNA (RT-PCR) NEGATIVE 10/28/23 10/28/23 17:14 18:39 MCV MCH MCHC RDW Plt Count MPV Immature Gran % (Auto) Neut % (Auto) Lymph % (Auto) [place] % (Auto) Eos % (Auto) Baso % (Auto) Lymph # (Auto) [place] # (Auto) Eos # (Auto) Baso # (Auto) Abs Immat Gran (auto) Absolute Neuts (auto) Absolute Nucleated RBC Nucleated RBC % (auto) Neutrophils % (Manual) Band Neutrophils % Lymphocytes % (Manual) Monocytes % (Manual) Basophils % (Manual) Abs Neuts (Manual) Lymphocytes # (Manual) Monocytes # (Manual) Basophils # (Manual) Platelet Estimate Plt Morphology Comment RBC Morphology PT INR O2 Saturation ABG pH at Pt Temp ABG pCO2 at Pt Temp ABG pO2 at Pt Temp ABG HCO3 ABG Base Excess (Actual) VBG pH VBG pCO2 VBG pO2 VBG HCO3 VBG O2 Saturation VBG Base Excess Anion Gap Estim Creat Clear Calc Estimated GFR Random Glucose Lactic Acid Calcium Magnesium Total Bilirubin Direct Bilirubin AST ALT Alkaline Phosphatase Troponin I High Sens 442.8 H* C-Reactive Protein B-Natriuretic Peptide Total Protein Albumin Lipase Procalcitonin Urine Color Yellow Urine Appearance Clear Urine pH 6.0 Ur Specific [place] >= 1.030 H Urine Protein 30 (1+) H Urine Glucose (UA) Negative Urine Ketones Negative Urine Blood Small (1+) H Urine Nitrite Negative Ur Leukocyte Esterase Negative Urine RBC 3-5 H Urine WBC 0-5 Ur Squamous Epith Cells 6-10 Urine Bacteria 4+ Hyaline Casts 0-2 Influenza Type A (PCR) Influenza Type B (PCR) RSV RNA Qual (PCR) SARS-CoV-2 RNA (RT-PCR) Imaging Radiologist's Impressions: Impressions Chest CTA 10/28/23 15:37 IMPRESSION: 1. Significant artifact markedly degrading images, limiting evaluation. Evaluation for pulmonary embolism is very limited. Recommend repeat study. No obvious large embolus is seen in the central pulmonary vasculature. 2. Extensive confluent airspace opacities in bilateral hemithoraces, of uncertain etiology. Differential considerations include ARDS, pulmonary edema, inflammatory, infectious processes among other etiologies. Clinically correlate. Follow-up imaging for reassessment as clinically warranted. 3. Additional findings and details above. Result and recommendations was discussed with at 6:22 PM on 12/27/2022 and it was ascertained that the content and urgency of the report was understood at the time of direct communication. Fleischner guidelines were followed. Electronically signed by: Scotty Sumner MD 10/28/2023 06:23 PM EDT RP Assessment and Plan (1) Acute sepsis: Status: Acute (2) Multifocal pneumonia: Status: Acute Plan ASSESSMENT : 1. Acute sepsis 2. Acute hypoxic respiratory failure 3. Acute respiratory distress to the above 4. Bilateral community-acquired pneumonia 5. Microcytic anemia rule out iron deficiency 6. Reactive troponinemia likely stress myopathy unlikely ACS 7. Acute kidney injury due to volume depletion and insensible losses with BUN to creatinine ratio of 35 8. Reactive transaminitis likely due to illness shocked liver syndrome 9. Morbid obesity 10. History of normal pressure hydrocephalus status post HEEL CEMENTER shunt 11. History of hypothalamic suprasellar glioma status post resection and chemotherapy back in 2014. PLAN OF CARE: Patient will be admitted to the ICU, monitor vital signs, I's and O's, she has not voided but bladder scan shows 700 cc of urine in the bladder, continue with gentle IV fluids (patient did not receive 30 mL/kilogram due to risk of fluid overload and already evidence of possible pulmonary edema who CT), albumin, Rocephin and Zithromax, sputum culture and Gram stain, continue with BiPAP support with low threshold for intubation if she worsens or tires out.? Will add iron panel, repeat laboratories and gas. ?Ultrasound of bilateral lower extremities. I had a lengthy discussion with the patient's mother who is a nurse regarding transfer and our inability to do so at this point for the patient is noticed stable enough.? However, if the patient deteriorates and requires intubation we can then consider transfer to the facility of choice.? She kindly asked me to discuss the case with my director Dr. Barcenas, who agrees with my assessment and will further discuss the case with the mother in the morning. If the patient was to deteriorate from the respiratory standpoint or end-organ damage, only then we could consider transferred to [facility]. ?However she understands that this would likely be indicates she requires intubation and transfer with no happen in the middle of the night.? Hopefully she improves. In the meantime given the there is a possibility the patient could have a pulmonary emboli as the study suboptimal, will give her Eliquis 10 mg p.o. b.i.d. until full 24 hours have passed and the patient could have a repeat CT angiogram. Patient did have some bronchospastic CT, I added Solu-Medrol, DuoNebs and albuterol. GI PROPHYLAXIS: ?Famotidine DVT PROPHYLAXIS: ?Full-dose Eliquis until CTA can be repeated Sepsis focussed follow up exam done at 0210 am 10/29/2023 On BiPAP support at 18 over 10, backup rate of 20 breathing at 32, FiO2 90% satting 92% VS: ?137/75, 105, 26, 97.7, General:? Alert oriented; seems tired still but more awake than before. Cardiac:? Tachycardic 110 beats per minute, no murmurs, rubs or gallops. ? Pulmonary: Still?Diminished lung sounds bilaterally with coarseness and rhonchi at both bases right greater than left.? No crackles.? Minimal expiratory wheezing anteriorly only. Abdomen:? Protuberant, positive bowel sounds in all 4 quadrants.? Soft, nontender, no rebound or guarding.? Neurologic:? As above, No focal deficits noted. Vascular:? 2+ pulses upper and lower extremities distally. ?Less than 2nd capillary refill of the finger and toes bilaterally upper and lower extremities. Continue with the above mentioned care, gentle IVF, patient is voiding about 75cc/hr, BP stable, labs improving. ? Critical care time used for critical evaluation of this patient, diagnosis, treatment and coordination of care, review her records and documentation TOTAL CRITICAL CARE TIME?120 MIN . discussion and coordination with consultants, completely separate from any procedures performed. ?
[2023-10-28] MEDS: methylPREDNISolone Sod Succ 125 MG/2 ML VIAL IVPUSH (20:25)
[2023-10-28] MEDS: Lactated Ringers 1,000 ML 100 ML IVCONT (20:25)
[2023-10-28] MEDS: Albuterol/Iprat 2.5/0.5MG 3 ML AMPUL.NEB INHALE (20:29)
[2023-10-28] MEDS: cefTRIAXone sodium 1 GM in 0.9 % Sodium Chloride 50 ML IV ×2 (20:31→21:57)
[2023-10-28] MEDS: Albumin Human 25 % 100 ML 133.33 ML IV ×2 (20:58→21:43)
[2023-10-28] MEDS: Azithromycin 500 MG in 0.9 % Sodium Chloride 250 ML 125 MG IV (21:05)
[2023-10-28] MEDS: Apixaban 5 MG TABLET 10 MG PO (21:59)
[2023-10-28 22:04] LABS: Hematocrit 30.8 % (37.0-47.0); Hemoglobin 9.7 g/dl (12.0-16.0); Mean Corpuscular HGB Conc 31.5 g/dl (31.0-35.0); Mean Corpuscular Hemoglobin 23.3 pg (27.0-33.0); NRBC Pct Auto 0.3 /100WBC (0.0-0.2); Platelet Count 281 X10*3/uL (160-400); Red Blood Count 4.16 X10*6/uL (4.20-5.50); White Blood Count 15.2 X10*3/uL (4.8-10.8)
[2023-10-28 22:13] LABS: Lactic Acid 1.5 mmol/L (0.5-2.0)
[2023-10-28 22:18] LABS: Alanine Aminotransferase 200 U/L (0-31); Albumin Level 3.9 g/dL (3.5-5.0); Alkaline Phosphatase 54 U/L (39-117); Anion Gap 15 (12-20); Aspartate Amino Transferase 301 U/L (5-31); Bilirubin Total 0.5 mg/dL (0.0-1.0); Blood Urea Nitrogen 23 mg/dL (9-16); Carbon Dioxide 26 mmol/L (22-29); Chloride 105 mmol/L (96-108); Estimated Glomerular Filt Rate > 60; Glucose Random 175 mg/dL (60-115); Potassium 4.2 mmol/L (3.3-5.1); Sodium 142 mmol/L (135-145); Total Protein 7.2 g/dL (6.5-8.0)
[2023-10-28 22:25] LABS: ABG Refer to POC result
[2023-10-28 22:27] LABS: Venous Blood Gas Refer to POC result
[2023-10-28 22:27] LABS: VBG HCO3 28 mmol/L (22-26); VBG pCO2 41 mmHg; VBG pH 7.44 (7.32-7.43); VBG pO2 113 mmHg
[2023-10-28 22:29] LABS: Atypical Lymph Absolute Manual 0.2 x10*3/uL; Atypical Lymphs Percent Manual 1 % (0-6); Band Neutrophils Percent 24 % (3-5); Large Platelet PRESENT; Lymphocytes Absolute Manual 1.2 X10*3/uL (1.2-4.9); Lymphocytes Percent Manual 8 % (20-40); Monocytes Absolute Manual 0.2 X10*3/uL (0.1-1.2); Monocytes Percent Manual 1 % (2-11); Neutrophils Absolute Manual 13.7 X10*3/uL (2.0-8.3); Neutrophils Percent Manual 66 % (45-73); Platelet Estimate NORMAL (NORMAL); Platelet Morphology Comment NOTED; RBC Morphology NOTED
[2023-10-28 22:30] LABS: Hypochromasia 1+ (5-14) /OIF; Ovalocytes 1+ (5-14) /OIF; Smudge Cells PRESENT
[2023-10-29] VITALS (42 sets, daily range): BP systolic 123–158; BP diastolic 64–96; PULSE 104–126; RESP 19–42; TEMP 36.6–37; O2SAT 82–98; BMI 43.0
[2023-10-29] MEDS: methylPREDNISolone Sod Succ 125 MG/2 ML VIAL 60 MG IVPUSH ×2 (01:19→08:08)
[2023-10-29] MEDS: Albuterol/Iprat 2.5/0.5MG 3 ML AMPUL.NEB INHALE ×4 (02:22→19:55)
[2023-10-29] MEDS: Lactated Ringers 1,000 ML 100 ML IVCONT ×2 (03:53→14:04)
[2023-10-29 05:41] LABS: Venous Blood Gas Refer to POC result
[2023-10-29 05:47] LABS: VBG Base Excess 7.9 mmol/L; VBG HCO3 33 mmol/L (22-26); VBG pCO2 50 mmHg; VBG pH 7.42 (7.32-7.43); VBG pO2 56 mmHg
[2023-10-29 05:53] LABS: Mean Corpuscular HGB Conc 30.3 g/dl (31.0-35.0); Mean Corpuscular Hemoglobin 23.2 pg (27.0-33.0); Mean Corpuscular Volume 76.6 fL (80.0-98.0); Mean Platelet Volume 10.9 fL (9.4-12.3); NRBC Pct Auto 0.5 /100WBC (0.0-0.2); PLT CLUMP 1; Red Blood Count 4.31 X10*6/uL (4.20-5.50); Red Cell Distribution Width 18.5 % (11.0-16.0)
[2023-10-29 05:56] LABS: White Blood Count 13.4 X10*3/uL (4.8-10.8)
[2023-10-29 06:00] LABS: Alanine Aminotransferase 214 U/L (0-31); Albumin Level 3.8 g/dL (3.5-5.0); Alkaline Phosphatase 51 U/L (39-117); Anion Gap 16 (12-20); Aspartate Amino Transferase 262 U/L (5-31); Bilirubin Total 0.3 mg/dL (0.0-1.0); Blood Urea Nitrogen 18 mg/dL (9-16); Calcium 9.2 mg/dL (8.4-10.2); Carbon Dioxide 28 mmol/L (22-29); Chloride 104 mmol/L (96-108); Creatinine Clr Calc Pharmacy 181.6; Estimated Glomerular Filt Rate > 60; Glucose Random 169 mg/dL (60-115); Phosphorus 2.3 mg/dL (2.7-4.5); Potassium 4.6 mmol/L (3.3-5.1); Sodium 143 mmol/L (135-145); Total Protein 7.2 g/dL (6.5-8.0)
[2023-10-29 06:23] LABS: Iron 20 mcg/dL (30-160); Percent Iron Saturation 9 % (15-50); Total Iron Binding Capacity 216 mcg/dL (228-428); Unsaturated Iron Binding 196 ug/dL
[2023-10-29] MEDS: Famotidine/PF 20 MG/2 ML VIAL IVPUSH (06:27)
[2023-10-29 06:45] LABS: Band Neutrophils Percent 25 % (3-5); Lymphocytes Absolute Manual 0.9 X10*3/uL (1.2-4.9); Lymphocytes Percent Manual 7 % (20-40); Metamyelocytes Absolute 0.1 X10*3/uL; Metamyelocytes Percent 1 %; Monocytes Absolute Manual 0.4 X10*3/uL (0.1-1.2); Monocytes Percent Manual 3 % (2-11); Neutrophils Absolute Manual 11.9 X10*3/uL (2.0-8.3); Neutrophils Percent Manual 64 % (45-73)
[2023-10-29 06:46] LABS: Burr Cells 1+ (0-2) /OIF; Howell Jolly Bodies PRESENT; Large Platelet PRESENT; Macrocytosis 1+ (5-14) /OIF; Ovalocytes 1+ (5-14) /OIF; Platelet Estimate NORMAL (NORMAL); Platelet Morphology Comment NOTED; RBC Morphology NOTED; Smudge Cells PRESENT
--- NOTE | 2023-10-29 07:00 | PC.NURSE ---
Assumed care of patient at 17:45. Patient seen in the ED awaiting ICU bed assignment and transfer orders pending results of CTA and labs on assuming care. On bipap 18/10/100% with spo2 maintained low to mid 90?s and RR mid 20?s to upper 30?s. Breathing even and unlabored without retractions or distress. No cough noted. Pt awake and alert, speaking clear sentences beneath bipap. +HARDIN and desats when attempted to assist patient to bedside commode to void. Pt voided 100ml concentrated, odorless cyu. Patient assisted back to bed and purewick placed for further voiding due to activity intolerance. U/A sent as ordered. Critical troponin back 442.8 at 18:[address] Pizano verbally notified, no new orders advised. CTA results called to Dr. Pizano from [place] [facility]; updated pt and her mother Anju of results with this film writer present at bedside.? 19:45 Patient accepted to ICU and transferred on bipap by this film writer and respiratory therapist to ICU. SHOAIB Llanos orders for labs, LR at 100ml/hr, ceftriaxone, azithromycin, and albumin. U/S of BLE ordered and obtained to r/o DVT. Pt on prophylactic eliquis.? Pt noted to be diaphoretic in the evening with difficulty obtaining accurate temporal and reliable axillary temperature at the time, skin warm to touch. Given tachycardia and tachypnea, need for accurate temperature to rule out fever was discussed with the pt and her mother present at the bedside. Pt verbalized she was agreeable to staff obtaining a rectal temp to assess for fever, temp 97.6 rectally. Pt was yet to void since earlier in the ED. SHOAIB Manriquez verbal orders at 21:45 to increase LR to 200ml/hr from 100ml/hr.? 22:20: Patient still without void since ED. Bladder scan done showing 731ml. Purewick in place, patient encouraged to void and able to produce 800ml odorless, concentrated cyu. PVR assessed showing 59ml. SHOAIB verbal order to return LR rate to initial 100ml/hr, done as requested. VBG resulted reviewed with PA and RT, Fio2 decreased to 90% by RT which patient tolerated.? HR improved overnight from initial 110?s-120?s to low 100?s-110's. No further diaphoresis noted. Fio2 decreased to 80% by RT at ~02:30 though pt unable to maintain spo2 per goal; Fio2 increased back to 90% by 03:30 by RT with improvement in spo2.? Patient tolerated 90% Fio2. No sputum produced; unable to send sputum cx as ordered. Breathing remains even and unlabored without distress. PO care provided.?Repositioned q2h. Handoff report given to oncoming RN.???
[2023-10-29] MEDS: Apixaban 5 MG TABLET 10 MG PO ×2 (08:09→20:06)
--- NOTE | 2023-10-29 11:03 | PC.RT ---
Pt awake on bipap, family in room. HFNC att to give pt a break from Bipap mask. With RT/RN remaining at bedside the pt was placed on HFNC 100% fio2 and 55lpm. Pt teto fair but was noted to desaturate to 75% within 5 mins. Bipap was replaced on pt who fairly quickly recovered to >90%, hfnc on standby. Will reattempt for pt comfort again later in the shift
[2023-10-29 11:04] LABS: D Dimer High Sensitivity 1703 NG/ML
[2023-10-29 11:05] LABS: Adenovirus PCR Not Detected (Not Detect.); Bordetella parapertussis PCR Not Detected (Not Detect.); Bordetella pertussis PCR Not Detected (Not Detect.); Chlamydia pneumoniae PCR Not Detected (Not Detect.); Coronavirus 229E PCR Not Detected (Not Detect.); Coronavirus HKU1 PCR Not Detected (Not Detect.); Coronavirus NL63 PCR Not Detected (Not Detect.); Coronavirus OC43 PCR Not Detected (Not Detect.); Human metapneumovirus PCR Not Detected (Not Detect.); Influenza A PCR Not Detected (Not Detect.); Influenza B PCR Not Detected (Not Detect.); Mycoplasma pneumoniae PCR Detected (Not Detect.); Parainfluenza 1 PCR Not Detected (Not Detect.); Parainfluenza 2 PCR Not Detected (Not Detect.); Parainfluenza 3 PCR Not Detected (Not Detect.); Parainfluenza 4 PCR Not Detected (Not Detect.); RSV PCR Not Detected (Not Detect.); Rhino/Enterovirus PCR Not Detected (Not Detect.)
[2023-10-29 11:16] LABS: SARS-CoV-2 PCR Not Detected (Not Detect.)
[2023-10-29 11:45] LABS: Erythrocyte Sedimentation Rate 90 MM/HR (0-20)
[2023-10-29] MEDS: Escitalopram Oxalate 20 MG TABLET PO (12:12)
--- NOTE | 2023-10-29 12:30 | P.PNCC_ITS ---
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 No events overnight. Critical Care Time (minutes): 45 Physical Exam 2 Vital Signs: Vital Signs: Last Vital Signs Temp 97.9 F 10/29/23 12:00 Pulse 117 H 10/29/23 12:00 Resp 36 H 10/29/23 12:00 BP 131/89 10/29/23 12:00 Pulse Ox 92 10/29/23 12:00 O2 Del Method BiPAP 10/29/23 12:00 FiO2 100 10/29/23 12:00 BMI result Body Mass Index 43.0 Const: General: no acute distress, alert and awake Eyes: Sclerae: sclerae normal EOM: EOMs intact bilaterally Neck: Neck: Yes no lymphadenopathy, Yes trachea midline and Yes supple Resp: Effort & Inspection: normal respiratory effort (On BiPAP) A uscultation: crackles (Bibasilar) Cardio: Rate: regular rate Rhythm: regular rhythm Heart sounds: no gallops, no murmurs and no rubs GI: Palpation (GI): Soft to palpation and Other GI palpation findings present ( Nontender) Auscultation: normal bowel sounds Extrem: General: Yes no pedal edema, No clubbing and No cyanosis Objective Data Labs 10/29/23 05:33 10/29/23 05:33 Labs: Laboratory Results - last 24 hr 10/28/23 10/28/23 10/28/23 15:53 15:54 16:07 WBC 17.0 H RBC 4.53 Hgb 10.5 L Hct 33.8 L MCV 74.6 L MCH 23.2 L MCHC 31.1 RDW 18.0 H Plt Count 312 MPV 11.4 Immature Gran % (Auto) Cancelled Neut % (Auto) Cancelled Lymph % (Auto) Cancelled [place] % (Auto) Cancelled Eos % (Auto) Cancelled Baso % (Auto) Cancelled Lymph # (Auto) Cancelled [place] # (Auto) Cancelled Eos # (Auto) Cancelled Baso # (Auto) Cancelled Abs Immat Gran (auto) Cancelled Absolute Neuts (auto) Cancelled Absolute Nucleated RBC 0.080 H Nucleated RBC % (auto) 0.5 H Neutrophils % (Manual) 72 Band Neutrophils % 7 H Lymphocytes % (Manual) 12 L Atypical Lymphs % (Man) Monocytes % (Manual) 8 Basophils % (Manual) 1 Metamyelocytes % Abs Neuts (Manual) 13.4 H Lymphocytes # (Manual) 2.0 Atyp Lymphs # (Manual) Monocytes # (Manual) 1.4 H Basophils # (Manual) 0.2 Metamyelocytes # Smudge Cells Platelet Estimate NORMAL Large Platelets Plt Morphology Comment NORMAL RBC Morphology NORMAL Hypochromasia Macrocytosis Ovalocytes [place] Bodies [place] Cells ESR PT 14.6 H INR 1.2 H D-Dimer High Sensitivty O2 Saturation 91.0 ABG pH at Pt Temp 7.43 ABG pCO2 at Pt Temp 44 ABG pO2 at Pt Temp 68 L ABG HCO3 29 H ABG Base Excess (Actual) 4.6 VBG pH 7.38 VBG pCO2 49 VBG pO2 63 VBG HCO3 30 H VBG O2 Saturation 88.0 VBG Base Excess 4.1 Sodium 138 Potassium 4.4 Chloride 98 Carbon Dioxide 27 Anion Gap 17 BUN 32 H Creatinine 0.91 Estim Creat Clear Calc 127.7 Estimated GFR > 60 Random Glucose 120 H Lactic Acid 1.5 Calcium 8.7 Phosphorus Magnesium 2.6 Iron TIBC % Saturation Unsat Iron Binding Total Bilirubin 0.4 Direct Bilirubin 0.3 AST 354 H ALT 203 H Alkaline Phosphatase 59 Troponin I High Sens 476.7 H* C-Reactive Protein 39.82 H B-Natriuretic Peptide 428 H Total Protein 6.8 Albumin 3.2 L Lipase 9 Procalcitonin 2.25 Urine Color Urine Appearance Urine pH Ur Specific [place] Urine Protein Urine Glucose (UA) Urine Ketones Urine Blood Urine Nitrite Ur Leukocyte Esterase Urine RBC Urine WBC Ur Squamous Epith Cells Urine Bacteria Hyaline Casts Respiratory Panel [place] Adenovirus (Rapid PCR) B.pert (TEM-PCR) B.parapertussis DNA PCR C. pneumoniae DNA (PCR) Coronavirus OC43 (PCR) Coronavirus HKU1 (PCR) Coronavirus 229E (PCR) Coronavirus NL63 (PCR) Human Metapneumovir PCR Influenza A (RT-PCR) Influenza Type A (PCR) NEGATIVE Influenza B (RT-PCR) Influenza Type B (PCR) NEGATIVE M. pneumoniae (PCR) Parainfluenza 1 (PCR) Parainfluenza 2 (PCR) Parainfluenza 3 (PCR) Parainfluenza 4 (PCR) RSV (PCR) RSV RNA Qual (PCR) NEGATIVE Entero/Rhino (PCR) SARS-CoV-2 RNA (RT-PCR) NEGATIVE 10/28/23 10/28/23 10/28/23 16:14 17:14 18:39 WBC RBC Hgb Hct MCV MCH MCHC RDW Plt Count MPV Immature Gran % (Auto) Neut % (Auto) Lymph % (Auto) [place] % (Auto) Eos % (Auto) Baso % (Auto) Lymph # (Auto) [place] # (Auto) Eos # (Auto) Baso # (Auto) Abs Immat Gran (auto) Absolute Neuts (auto) Absolute Nucleated RBC Nucleated RBC % (auto) Neutrophils % (Manual) Band Neutrophils % Lymphocytes % (Manual) Atypical Lymphs % (Man) Monocytes % (Manual) Basophils % (Manual) Metamyelocytes % Abs Neuts (Manual) Lymphocytes # (Manual) Atyp Lymphs # (Manual) Monocytes # (Manual) Basophils # (Manual) Metamyelocytes # Smudge Cells Platelet Estimate Large Platelets Plt Morphology Comment RBC Morphology Hypochromasia Macrocytosis Ovalocytes [place] Bodies [place] Cells ESR PT INR D-Dimer High Sensitivty O2 Saturation ABG pH at Pt Temp ABG pCO2 at Pt Temp ABG pO2 at Pt Temp ABG HCO3 ABG Base Excess (Actual) VBG pH VBG pCO2 VBG pO2 VBG HCO3 VBG O2 Saturation VBG Base Excess Sodium Potassium Chloride Carbon Dioxide Anion Gap BUN Creatinine Estim Creat Clear Calc Estimated GFR Random Glucose Lactic Acid Calcium Phosphorus Magnesium Iron TIBC % Saturation Unsat Iron Binding Total Bilirubin Direct Bilirubin AST ALT Alkaline Phosphatase Troponin I High Sens 442.8 H* C-Reactive Protein B-Natriuretic Peptide Total Protein Albumin Lipase Procalcitonin Urine Color Yellow Urine Appearance Clear Urine pH 6.0 Ur Specific [place] >= 1.030 H Urine Protein 30 (1+) H Urine Glucose (UA) Negative Urine Ketones Negative Urine Blood Small (1+) H Urine Nitrite Negative Ur Leukocyte Esterase Negative Urine RBC 3-5 H Urine WBC 0-5 Ur Squamous Epith Cells 6-10 Urine Bacteria 4+ Hyaline Casts 0-2 Respiratory Panel [place] See Note Adenovirus (Rapid PCR) Not Detected B.pert (TEM-PCR) Not Detected B.parapertussis DNA PCR Not Detected C. pneumoniae DNA (PCR) Not Detected Coronavirus OC43 (PCR) Not Detected Coronavirus HKU1 (PCR) Not Detected Coronavirus 229E (PCR) Not Detected Coronavirus NL63 (PCR) Not Detected Human Metapneumovir PCR Not Detected Influenza A (RT-PCR) Not Detected Influenza Type A (PCR) Influenza B (RT-PCR) Not Detected Influenza Type B (PCR) M. pneumoniae (PCR) Detected A Parainfluenza 1 (PCR) Not Detected Parainfluenza 2 (PCR) Not Detected Parainfluenza 3 (PCR) Not Detected Parainfluenza 4 (PCR) Not Detected RSV (PCR) Not Detected RSV RNA Qual (PCR) Entero/Rhino (PCR) Not Detected SARS-CoV-2 RNA (RT-PCR) Not Detected 10/28/23 10/28/23 10/29/23 21:56 22:03 05:33 WBC 15.2 H 13.4 H RBC 4.16 L 4.31 Hgb 9.7 L 10.0 L Hct 30.8 L 33.0 L MCV 74.0 L 76.6 L MCH 23.3 L 23.2 L MCHC 31.5 30.3 L RDW 18.0 H 18.5 H Plt Count 281 Not Reportable MPV 11.0 10.9 Immature Gran % (Auto) Cancelled Cancelled Neut % (Auto) Cancelled Cancelled Lymph % (Auto) Cancelled Cancelled [place] % (Auto) Cancelled Cancelled Eos % (Auto) Cancelled Cancelled Baso % (Auto) Cancelled Cancelled Lymph # (Auto) Cancelled Cancelled [place] # (Auto) Cancelled Cancelled Eos # (Auto) Cancelled Cancelled Baso # (Auto) Cancelled Cancelled Abs Immat Gran (auto) Cancelled Cancelled Absolute Neuts (auto) Cancelled Cancelled Absolute Nucleated RBC 0.040 H 0.070 H Nucleated RBC % (auto) 0.3 H 0.5 H Neutrophils % (Manual) 66 64 Band Neutrophils % 24 H 25 H Lymphocytes % (Manual) 8 L 7 L Atypical Lymphs % (Man) 1 Monocytes % (Manual) 1 L 3 Basophils % (Manual) Metamyelocytes % 1 Abs Neuts (Manual) 13.7 H 11.9 H Lymphocytes # (Manual) 1.2 0.9 L Atyp Lymphs # (Manual) 0.2 Monocytes # (Manual) 0.2 0.4 Basophils # (Manual) Metamyelocytes # 0.1 Smudge Cells PRESENT PRESENT Platelet Estimate NORMAL NORMAL Large Platelets PRESENT PRESENT Plt Morphology Comment NOTED NOTED RBC Morphology NOTED NOTED Hypochromasia 1+ (5-14) Macrocytosis 1+ (5-14) Ovalocytes 1+ (5-14) 1+ (5-14) [place] Bodies PRESENT [place] Cells 1+ (0-2) ESR 90 H PT INR D-Dimer High Sensitivty O2 Saturation ABG pH at Pt Temp ABG pCO2 at Pt Temp ABG pO2 at Pt Temp ABG HCO3 ABG Base Excess (Actual) VBG pH 7.44 H VBG pCO2 41 VBG pO2 113 VBG HCO3 28 H VBG O2 Saturation 99.0 VBG Base Excess 4.0 Sodium 142 143 Potassium 4.2 4.6 Chloride 105 104 Carbon Dioxide 26 28 Anion Gap 15 16 BUN 23 H 18 H Creatinine 0.70 0.64 Estim Creat Clear Calc 166.0 181.6 Estimated GFR > 60 > 60 Random Glucose 175 H 169 H Lactic Acid 1.5 Calcium 9.0 9.2 Phosphorus 3.0 2.3 L Magnesium 3.0 H Iron 20 L TIBC 216 L % Saturation 9 L Unsat Iron Binding 196 Total Bilirubin 0.5 0.3 Direct Bilirubin AST 301 H 262 H ALT 200 H 214 H Alkaline Phosphatase 54 51 Troponin I High Sens C-Reactive Protein B-Natriuretic Peptide Total Protein 7.2 7.2 Albumin 3.9 3.8 Lipase Procalcitonin Urine Color Urine Appearance Urine pH Ur Specific [place] Urine Protein Urine Glucose (UA) Urine Ketones Urine Blood Urine Nitrite Ur Leukocyte Esterase Urine RBC Urine WBC Ur Squamous Epith Cells Urine Bacteria Hyaline Casts Respiratory Panel [place] Adenovirus (Rapid PCR) B.pert (TEM-PCR) B.parapertussis DNA PCR C. pneumoniae DNA (PCR) Coronavirus OC43 (PCR) Coronavirus HKU1 (PCR) Coronavirus 229E (PCR) Coronavirus NL63 (PCR) Human Metapneumovir PCR Influenza A (RT-PCR) Influenza Type A (PCR) Influenza B (RT-PCR) Influenza Type B (PCR) M. pneumoniae (PCR) Parainfluenza 1 (PCR) Parainfluenza 2 (PCR) Parainfluenza 3 (PCR) Parainfluenza 4 (PCR) RSV (PCR) RSV RNA Qual (PCR) Entero/Rhino (PCR) SARS-CoV-2 RNA (RT-PCR) 10/29/23 10/29/23 05:39 10:50 WBC RBC Hgb Hct MCV MCH MCHC RDW Plt Count MPV Immature Gran % (Auto) Neut % (Auto) Lymph % (Auto) [place] % (Auto) Eos % (Auto) Baso % (Auto) Lymph # (Auto) [place] # (Auto) Eos # (Auto) Baso # (Auto) Abs Immat Gran (auto) Absolute Neuts (auto) Absolute Nucleated RBC Nucleated RBC % (auto) Neutrophils % (Manual) Band Neutrophils % Lymphocytes % (Manual) Atypical Lymphs % (Man) Monocytes % (Manual) Basophils % (Manual) Metamyelocytes % Abs Neuts (Manual) Lymphocytes # (Manual) Atyp Lymphs # (Manual) Monocytes # (Manual) Basophils # (Manual) Metamyelocytes # Smudge Cells Platelet Estimate Large Platelets Plt Morphology Comment RBC Morphology Hypochromasia Macrocytosis Ovalocytes [place] Bodies [place] Cells ESR PT INR D-Dimer High Sensitivty 1703 O2 Saturation ABG pH at Pt Temp ABG pCO2 at Pt Temp ABG pO2 at Pt Temp ABG HCO3 ABG Base Excess (Actual) VBG pH 7.42 VBG pCO2 50 VBG pO2 56 VBG HCO3 33 H VBG O2 Saturation 85.0 VBG Base Excess 7.9 Sodium Potassium Chloride Carbon Dioxide Anion Gap BUN Creatinine Estim Creat Clear Calc Estimated GFR Random Glucose Lactic Acid Calcium Phosphorus Magnesium Iron TIBC % Saturation Unsat Iron Binding Total Bilirubin Direct Bilirubin AST ALT Alkaline Phosphatase Troponin I High Sens C-Reactive Protein B-Natriuretic Peptide Total Protein Albumin Lipase Procalcitonin Urine Color Urine Appearance Urine pH Ur Specific [place] Urine Protein Urine Glucose (UA) Urine Ketones Urine Blood Urine Nitrite Ur Leukocyte Esterase Urine RBC Urine WBC Ur Squamous Epith Cells Urine Bacteria Hyaline Casts Respiratory Panel [place] Adenovirus (Rapid PCR) B.pert (TEM-PCR) B.parapertussis DNA PCR C. pneumoniae DNA (PCR) Coronavirus OC43 (PCR) Coronavirus HKU1 (PCR) Coronavirus 229E (PCR) Coronavirus NL63 (PCR) Human Metapneumovir PCR Influenza A (RT-PCR) Influenza Type A (PCR) Influenza B (RT-PCR) Influenza Type B (PCR) M. pneumoniae (PCR) Parainfluenza 1 (PCR) Parainfluenza 2 (PCR) Parainfluenza 3 (PCR) Parainfluenza 4 (PCR) RSV (PCR) RSV RNA Qual (PCR) Entero/Rhino (PCR) SARS-CoV-2 RNA (RT-PCR) Microbiology Microbiology Results: Microbiology 10/28/23 16:07 Blood - Venous Blood Culture - Preliminary Prelim: GPC Gram Stain only 10/28/23 16:07 Blood - Venous Blood Culture - Preliminary Prelim: GPC Gram Stain only Progress Note: A&P Assessment and plan (1) Atypical pneumonia: Status: Acute (2) Pneumonia due to gram-positive bacteria: Status: Acute (3) Acute respiratory failure with hypoxia: Status: Acute Plan Assessment: 23-year-old lady admitted with fulminant Gram-positive/atypical pneumonia requiring BiPAP support Plan: Neuro: No acute issues. Cardiac: No acute issues. Pulmonary: Acute hypoxic respiratory failure secondary to Gram- positive/atypical pneumonia now requiring BiPAP support, continue to titrate off as tolerated. Elevated D-dimer, initial CT angio chest suboptimal quality, will repeat CT angio chest. Renal: No acute issues. Endo: No acute issues. GI: No acute issues. ID: Atypical/Gram-positive pneumonia, continue ceftriaxone and azithromycin. Heme/Onc: No acute issues. Psych: No acute issues. Miscellaneous: No acute issues. Prophylaxis: Apixaban Diet: Regular Critical care time spent: 45 minutes Quality Stroke Does the patient have a stroke diagnosis?: No VTE Prior VTE?: No VTE Risk Level:: Medical - moderate - high VTE Device Contraindication: Treatment Not Indicated VTE Drug Contraindication: N/A - Med Ordered
--- NOTE | 2023-10-29 16:07 | PC.RT ---
RT transition pt to HFNC/PNRB for break from Bipap mask. Pt able to maintain spo2 90% on 100% fio2/ 55 lpm and 15 lpm PNRB. RT remained in ICU X 1 hr before returning pt to Bipap. Nursing aware.
[2023-10-29] MEDS: HYDROmorphone HCl 0.5 MG/0.5 ML SYRINGE IVPUSH ×2 (19:35→19:45)
[2023-10-29] MEDS: Azithromycin 500 MG in 0.9 % Sodium Chloride 250 ML 125 MG IV (20:11)
[2023-10-29] MEDS: HYDROmorphone HCl 1 MG/ML SYRINGE IVPUSH (22:31)
[2023-10-29] MEDS: cefTRIAXone sodium 2 GM in 0.9 % Sodium Chloride 50 ML IV (23:01)
--- NOTE | 2023-10-29 23:43 | PC.NURSE ---
Assumed care of pt at 1900. Pt with resp rate 30's-40 and very anxious. O2 sats 84-86%. Both moms at bedside trying to help pt relax. Declan CRAMER at bedside. Pt received dilaudid 0.5mg IVP with some effect but only last a few minutes. Declan ordered another dose of dilaudid 0.5mg IVP. Again with some effect but did not last. Resp therapist gave updraft treatment. Pt had been on Hi flow NC X 20min and returned to bipap facemask. HOB up 60-90degrees. Some improvement with resp rate now 20's. BP stable, afebrile. Later pt became increasingly anxious and 1mg Dilaudid IVP given with good effect. Able to lie pt to wash back, do lauren care and change purewick. Washed face and hair tied back to help bipap mask fit better. Pt repos up in bed with HOB 60-90 degrees. Pt stated she felt much better. Relaxation techniques used. Lights dim and soft music playing. Pt is now resting quietly and O2 sats 87-88%.
[2023-10-30] VITALS (37 sets, daily range): BP systolic 124–169; BP diastolic 59–109; PULSE 21–124; RESP 19–34; TEMP 36.2–36.6; O2SAT 85–93; BMI 44.3
[2023-10-30] MEDS: HYDROmorphone HCl 1 MG/ML SYRINGE IVPUSH ×2 (00:55→04:32)
[2023-10-30] MEDS: Albuterol/Iprat 2.5/0.5MG 3 ML AMPUL.NEB INHALE ×4 (01:39→19:54)
--- NOTE | 2023-10-30 02:11 | PC.NURSE ---
Assumed care of patient at 01:30. Patient spo2 noted to be in the low 80's at this time. Patient had already received prn dilaudid for distress recently and not yet due for another dose. Machine Inspector to the patient's bedside. Patient reported feeling anxious and requested cool cloths to wipe her face and forehead with; this was done by auto service writer per request as well as M-technique to hands and reassurance provided. Both of patient mother's present at the bedside, assisting with verbal reassurance. SHOAIB Manriquez aware of spo2. Respiratory therapy notified and to bedside for breathing treatment. Improvement with interventions in spo2 to mid to upper 80's. Breathing is even and unlabored without distress, tolerating bipap.
[2023-10-30 05:38] LABS: VBG Base Excess 8.4 mmol/L; VBG HCO3 33 mmol/L (22-26); VBG pCO2 45 mmHg; VBG pH 7.46 (7.32-7.43); VBG pO2 62 mmHg
[2023-10-30 05:53] LABS: Hematocrit 30.5 % (37.0-47.0); Hemoglobin 9.6 g/dl (12.0-16.0); Mean Corpuscular HGB Conc 31.5 g/dl (31.0-35.0); Mean Corpuscular Hemoglobin 23.4 pg (27.0-33.0); Mean Corpuscular Volume 74.2 fL (80.0-98.0); Mean Platelet Volume 11.4 fL (9.4-12.3); Platelet Count 304 X10*3/uL (160-400); Red Blood Count 4.11 X10*6/uL (4.20-5.50); Red Cell Distribution Width 18.2 % (11.0-16.0); White Blood Count 22.6 X10*3/uL (4.8-10.8)
[2023-10-30 05:56] LABS: NRBC Pct Auto 1.2 /100WBC (0.0-0.2)
[2023-10-30 06:13] LABS: Alanine Aminotransferase 280 U/L (0-31); Albumin Level 3.6 g/dL (3.5-5.0); Alkaline Phosphatase 63 U/L (39-117); Anion Gap 16 (12-20); Aspartate Amino Transferase 219 U/L (5-31); Bilirubin Total 0.3 mg/dL (0.0-1.0); Blood Urea Nitrogen 21 mg/dL (9-16); Calcium 9.1 mg/dL (8.4-10.2); Carbon Dioxide 28 mmol/L (22-29); Chloride 104 mmol/L (96-108); Estimated Glomerular Filt Rate > 60; Glucose Random 149 mg/dL (60-115); Magnesium 2.9 mg/dL (1.6-2.6); Phosphorus 3.5 mg/dL (2.7-4.5); Potassium 4.8 mmol/L (3.3-5.1); Sodium 143 mmol/L (135-145); Total Protein 6.9 g/dL (6.5-8.0)
[2023-10-30 06:50] LABS: Venous Blood Gas Refer to POC result
[2023-10-30] MEDS: Lactated Ringers 1,000 ML 50 ML IVCONT (07:33)
[2023-10-30] MEDS: methylPREDNISolone Sod Succ 125 MG/2 ML VIAL 60 MG IVPUSH (07:43)
[2023-10-30] MEDS: Escitalopram Oxalate 20 MG TABLET PO (07:43)
[2023-10-30] MEDS: Apixaban 5 MG TABLET 10 MG PO ×2 (07:44→19:55)
[2023-10-30 07:49] LABS: Band Neutrophils Percent 2 % (3-5); Lymphocytes Absolute Manual 0.5 X10*3/uL (1.2-4.9); Lymphocytes Percent Manual 2 % (20-40); Metamyelocytes Absolute 0.5 X10*3/uL; Metamyelocytes Percent 2 %; Monocytes Absolute Manual 0.5 X10*3/uL (0.1-1.2); Monocytes Percent Manual 2 % (2-11); Neutrophils Absolute Manual 21.2 X10*3/uL (2.0-8.3); Neutrophils Percent Manual 92 % (45-73)
[2023-10-30 07:50] LABS: Large Platelet PRESENT; Platelet Estimate INCREASED (NORMAL); Platelet Morphology Comment NOTED; RBC Morphology NORMAL
--- NOTE | 2023-10-30 08:30 | PC.RT ---
Pt awake, nursing has am medication. Pt placed on 100%/55lpm with 15 lpm oxymask over HFNC. Pt able to maintain spo2 85-86%. Off for meds and comfort x 30 min. Spo2 noted 83% and pt returned to Bipap, teto well. Nurse aware.
[2023-10-30] MEDS: Furosemide 20 MG/2 ML VIAL IVPUSH ×2 (09:24→19:55)
[2023-10-30] MEDS: fentaNYL citrate/PF 100 MCG/2 ML VIAL 50 MCG IVPUSH ×4 (09:35→22:15)
--- NOTE | 2023-10-30 11:20 | PM.CCPN ---
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 No events overnight. Critical Care Time (minutes): 45 Physical Exam Vital Signs: Vital Signs: Last Vital Signs Temp 97.1 F 10/30/23 08:00 Pulse 102 H 10/30/23 10:59 Resp 30 H 10/30/23 10:59 BP 130/91 H 10/30/23 10:59 Pulse Ox 91 L 10/30/23 10:59 O2 Del Method BiPAP 10/30/23 10:59 O2 Flow Rate 55 10/29/23 19:44 FiO2 100 10/30/23 10:59 BMI result Body Mass Index 44.3 Const: General: no acute distress, alert and awake Eyes: Sclerae: sclerae normal EOM: EOMs intact bilaterally Neck: Neck: Yes no lymphadenopathy, Yes trachea midline and Yes supple Resp: Effort & Inspection: tachypneic Auscultation: crackles (Diffuse bilateral) Cardio: Rate: tachycardic Rhythm: regular rhythm Heart sounds: no gallops, no murmurs and no rubs GI: Palpation (GI): Soft to palpation and Other GI palpation findings present ( Nontender) Auscultation: normal bowel sounds Extrem: General: No clubbing, No cyanosis and Yes edema (1+ bilateral) Objective Data Labs 10/30/23 05:32 10/30/23 05:32 Labs: Laboratory Results - last 24 hr 10/29/23 10/30/23 10/30/23 05:33 05:27 05:32 WBC 22.6 H RBC 4.11 L Hgb 9.6 L Hct 30.5 L MCV 74.2 L MCH 23.4 L MCHC 31.5 RDW 18.2 H Plt Count 304 MPV 11.4 Immature Gran % (Auto) Cancelled Neut % (Auto) Cancelled Lymph % (Auto) Cancelled [place] % (Auto) Cancelled Eos % (Auto) Cancelled Baso % (Auto) Cancelled Lymph # (Auto) Cancelled [place] # (Auto) Cancelled Eos # (Auto) Cancelled Baso # (Auto) Cancelled Abs Immat Gran (auto) Cancelled Absolute Neuts (auto) Cancelled Absolute Nucleated RBC 0.260 H Nucleated RBC % (auto) 1.2 H Neutrophils % (Manual) 92 H Band Neutrophils % 2 L Lymphocytes % (Manual) 2 L Monocytes % (Manual) 2 Metamyelocytes % 2 Abs Neuts (Manual) 21.2 H Lymphocytes # (Manual) 0.5 L Monocytes # (Manual) 0.5 Metamyelocytes # 0.5 Platelet Estimate INCREASED Large Platelets PRESENT Plt Morphology Comment NOTED RBC Morphology NORMAL ESR 90 H VBG pH 7.46 H VBG pCO2 45 VBG pO2 62 VBG HCO3 33 H VBG O2 Saturation 89.0 VBG Base Excess 8.4 Sodium 143 Potassium 4.8 Chloride 104 Carbon Dioxide 28 Anion Gap 16 BUN 21 H Creatinine 0.67 Estim Creat Clear Calc 170.0 Estimated GFR > 60 Random Glucose 149 H Calcium 9.1 Phosphorus 3.5 Magnesium 2.9 H Total Bilirubin 0.3 AST 219 H ALT 280 H Alkaline Phosphatase 63 Total Protein 6.9 Albumin 3.6 Microbiology Microbiology Results: Microbiology 10/28/23 16:07 Blood - Venous Blood Culture - Preliminary Prelim: GPC Gram Stain only 10/28/23 16:07 Blood - Venous Blood Culture - Preliminary Staphylococcus species Progress Note: A&P Assessment and plan (1) Acute respiratory failure with hypoxia: Status: Acute (2) Pneumonia due to gram-positive bacteria: Status: Acute (3) Atypical pneumonia: Status: Acute Plan Assessment: 23-year-old lady admitted with fulminant Gram-positive/atypical pneumonia requiring BiPAP support Plan: Neuro: No acute issues. Cardiac: No acute issues. Pulmonary: Acute hypoxic respiratory failure secondary to Gram-positive/atypical pneumonia now requiring BiPAP support, continue to titrate off as tolerated. Elevated D-dimer, initial CT angio chest suboptimal quality, will repeat CT angio chest when patient tolerates laying flat. Also with component of pulmonary edema, improving with diuresis. Renal: No acute issues. Endo: No acute issues. GI: No acute issues. ID: Atypical/Gram-positive pneumonia, continue ceftriaxone and azithromycin. Heme/Onc: No acute issues. Psych: No acute issues. Miscellaneous: No acute issues. Prophylaxis: Apixaban Diet: Regular Critical care time spent: 45 minutes Quality Stroke Does the patient have a stroke diagnosis?: No VTE Prior VTE?: No VTE Risk Level:: Medical - moderate - high VTE Device Contraindication: Treatment Not Indicated VTE Drug Contraindication: N/A - Med Ordered
[2023-10-30] MEDS: Albuterol Sulfate (0.083%) 2.5 MG/3 ML VIAL.NEB INHALE (11:43)
[2023-10-30 12:23] LABS: B Type Natriuretic Peptide 75 pg/mL (<100)
[2023-10-30] MEDS: Famotidine/PF 20 MG/2 ML VIAL IVPUSH (14:09)
--- NOTE | 2023-10-30 16:10 | PC.RT ---
Pt off bipap to 100% hfnc with 50 lpm combined with 15 lpm oxymask for relief from Bipap full face mask. Pt teto well with spo2 88-89% for 1 hour before being returned to bipap with under the nose mask. Pt teto well. On bipap with no issue.
[2023-10-30 18:34] LABS: Anion Gap 19 (12-20); Blood Urea Nitrogen 25 mg/dL (9-16); Calcium 9.5 mg/dL (8.4-10.2); Carbon Dioxide 26 mmol/L (22-29); Chloride 103 mmol/L (96-108); Creatinine Clr Calc Pharmacy 170.5; Estimated Glomerular Filt Rate > 60; Glucose Random 173 mg/dL (60-115); Potassium 5.7 mmol/L (3.3-5.1); Sodium 142 mmol/L (135-145)
[2023-10-30] MEDS: Azithromycin 500 MG in 0.9 % Sodium Chloride 250 ML 125 MG IV (19:44)
[2023-10-30] MEDS: cefTRIAXone sodium 2 GM in 0.9 % Sodium Chloride 50 ML IV (19:55)
[2023-10-30 23:59] LABS: Alanine Aminotransferase 289 U/L (0-31); Albumin Level 3.7 g/dL (3.5-5.0); Alkaline Phosphatase 67 U/L (39-117); Anion Gap 16 (12-20); Aspartate Amino Transferase 139 U/L (5-31); Bilirubin Total 0.3 mg/dL (0.0-1.0); Blood Urea Nitrogen 22 mg/dL (9-16); Calcium 9.2 mg/dL (8.4-10.2); Carbon Dioxide 30 mmol/L (22-29); Chloride 100 mmol/L (96-108); Creatinine Clr Calc Pharmacy 163.3; Estimated Glomerular Filt Rate > 60; Glucose Random 128 mg/dL (60-115); Potassium 4.4 mmol/L (3.3-5.1); Sodium 142 mmol/L (135-145)
[2023-10-31] VITALS (36 sets, daily range): BP systolic 119–152; BP diastolic 62–93; PULSE 84–115; RESP 16–36; TEMP 36.4–37.1; O2SAT 89–97; BMI 44.3
[2023-10-31] MEDS: Albuterol/Iprat 2.5/0.5MG 3 ML AMPUL.NEB INHALE ×4 (02:54→20:36)
[2023-10-31] MEDS: fentaNYL citrate/PF 100 MCG/2 ML VIAL 50 MCG IVPUSH ×3 (04:03→20:05)
[2023-10-31 05:26] LABS: VBG Base Excess 9.6 mmol/L; VBG HCO3 31 mmol/L (22-26); VBG pCO2 34 mmHg; VBG pH 7.57 (7.32-7.43); VBG pO2 42 mmHg
[2023-10-31 05:42] LABS: Hematocrit 32.4 % (37.0-47.0); Mean Corpuscular HGB Conc 30.9 g/dl (31.0-35.0); Mean Corpuscular Volume 74.5 fL (80.0-98.0); Mean Platelet Volume 11.7 fL (9.4-12.3); NRBC Pct Auto 1.2 /100WBC (0.0-0.2); Platelet Count 354 X10*3/uL (160-400); Red Blood Count 4.35 X10*6/uL (4.20-5.50); Red Cell Distribution Width 18.4 % (11.0-16.0); White Blood Count 18.8 X10*3/uL (4.8-10.8)
[2023-10-31 05:59] LABS: Alanine Aminotransferase 278 U/L (0-31); Albumin Level 3.7 g/dL (3.5-5.0); Alkaline Phosphatase 62 U/L (39-117); Anion Gap 16 (12-20); Aspartate Amino Transferase 117 U/L (5-31); Bilirubin Total 0.4 mg/dL (0.0-1.0); Blood Urea Nitrogen 25 mg/dL (9-16); Calcium 9.1 mg/dL (8.4-10.2); Carbon Dioxide 30 mmol/L (22-29); Chloride 101 mmol/L (96-108); Creatinine Clr Calc Pharmacy 161.1; Estimated Glomerular Filt Rate > 60; Glucose Random 126 mg/dL (60-115); Magnesium 2.6 mg/dL (1.6-2.6); Phosphorus 4.7 mg/dL (2.7-4.5); Potassium 4.8 mmol/L (3.3-5.1); Sodium 142 mmol/L (135-145); Total Protein 6.8 g/dL (6.5-8.0)
[2023-10-31 06:27] LABS: Atypical Lymph Absolute Manual 0.4 x10*3/uL; Atypical Lymphs Percent Manual 2 % (0-6); Band Neutrophils Percent 12 % (3-5); Eosinophils Absolute Manual 0.2 X10*3/uL (0.0-0.4); Eosinophils Percent Manual 1 % (0-4); Lymphocytes Absolute Manual 1.3 X10*3/uL (1.2-4.9); Lymphocytes Percent Manual 7 % (20-40); Metamyelocytes Absolute 0.9 X10*3/uL; Metamyelocytes Percent 5 %; Monocytes Absolute Manual 1.5 X10*3/uL (0.1-1.2); Monocytes Percent Manual 8 % (2-11); Neutrophils Absolute Manual 14.5 X10*3/uL (2.0-8.3); Neutrophils Percent Manual 65 % (45-73); Nucleated Red Blood Cells 1 /100WBC (0-0)
[2023-10-31 06:29] LABS: Hypochromasia 1+ (5-14) /OIF; Large Platelet PRESENT; Microcytosis 1+ (5-14) /OIF; Ovalocytes 1+ (5-14) /OIF; Platelet Estimate NORMAL (NORMAL); Platelet Morphology Comment NOTED; Polychromasia 1+ (0-2) /OIF; RBC Morphology NOTED; Target Cells 1+ (5-14) /OIF
[2023-10-31 06:38] LABS: Venous Blood Gas Refer to POC result
--- NOTE | 2023-10-31 08:48 | MHC.CM.PN ---
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 She is independent with all functional mobility. She is in ICU on BIBAP support. She has agreed to document a HCP. A copy has been scanned into EMR. DP TBD by patients recovery. She will likely discharge to home self care. A family member will provide transportation home.
[2023-10-31] MEDS: Piperacillin Sodium/Tazobactam 4.5 GM in 0.9 % Sodium Chloride 100 ML IV ×3 (10:12→19:58)
[2023-10-31] MEDS: Escitalopram Oxalate 20 MG TABLET PO (10:12)
[2023-10-31] MEDS: Famotidine/PF 20 MG/2 ML VIAL IVPUSH (10:12)
[2023-10-31] MEDS: methylPREDNISolone Sod Succ 125 MG/2 ML VIAL 40 MG IVPUSH (10:12)
[2023-10-31] MEDS: Apixaban 5 MG TABLET 10 MG PO (10:12)
[2023-10-31] MEDS: rifAMPin 300 MG CAPSULE 600 MG PO (10:12)
--- NOTE | 2023-10-31 11:09 | P.PNCC_ITS ---
Subjective Subjective Date of Service: 10/31/23 Critical Care Time (minutes): 35 Comment: Remained on an IPPV overnight, change to OptiFlow this morning States her breathing is better than before Physical Exam 2 Vital Signs: Vital Signs: Last Vital Signs Temp 98.0 F 10/31/23 09:00 Pulse 115 H 10/31/23 11:00 Resp 29 H 10/31/23 11:00 BP 129/75 10/31/23 11:00 Pulse Ox 93 10/31/23 11:00 O2 Del Method High Flow Nasal C annula 10/31/23 11:00 O2 Flow Rate 50 10/31/23 11:00 FiO2 100 10/31/23 11:00 BMI result Body Mass Index 44.3 General: acute distress, ill appearing Nutritional Appearance: well nourished and overweight Eyes: appearance normal, both eyes and all related structures; Alignment and Position: alignment normal and position normal Neck: No lymphadenopathy, no thyromegaly Resp: bilateral air entry equal, breaths sounds fairly okay bilaterally, decreased breath sounds in both axillary area Cardio: Regular rate, regular rhythm; Heart sounds: S1 normal heart sound present and S2 normal heart sound present GI: soft, nontender, no guarding, no hepatosplenomegaly : bladder normal to inspection, bladder normal to palpation, no renal angle tenderness Skin: no rashes or lesions noted and elasticity normal Neuro: oriented to person, oriented to place, oriented to time and moves all extremities Objective Data Labs 10/31/23 05:21 10/31/23 05:21 Labs: Laboratory Results - last 24 hr 10/30/23 10/30/23 10/30/23 11:39 18:00 23:36 WBC RBC Hgb Hct MCV MCH MCHC RDW Plt Count MPV Immature Gran % (Auto) Neut % (Auto) Lymph % (Auto) [place] % (Auto) Eos % (Auto) Baso % (Auto) Lymph # (Auto) [place] # (Auto) Eos # (Auto) Baso # (Auto) Abs Immat Gran (auto) Absolute Neuts (auto) Absolute Nucleated RBC Nucleated RBC % (auto) Neutrophils % (Manual) Band Neutrophils % Lymphocytes % (Manual) Atypical Lymphs % (Man) Monocytes % (Manual) Eosinophils % (Manual) Metamyelocytes % Abs Neuts (Manual) Lymphocytes # (Manual) Atyp Lymphs # (Manual) Monocytes # (Manual) Eosinophils # (Manual) Metamyelocytes # Nucleated RBCs Platelet Estimate Large Platelets Plt Morphology Comment RBC Morphology Polychromasia Hypochromasia Microcytosis Target Cells Ovalocytes VBG pH VBG pCO2 VBG pO2 VBG HCO3 VBG O2 Saturation VBG Base Excess Sodium 142 142 Potassium 5.7 H 4.4 D Chloride 103 100 Carbon Dioxide 26 30 H Anion Gap 19 16 BUN 25 H 22 H Creatinine 0.68 0.71 Estim Creat Clear Calc 170.5 163.3 Estimated GFR > 60 > 60 Random Glucose 173 H 128 H Calcium 9.5 9.2 Phosphorus Magnesium Total Bilirubin 0.3 AST 139 H ALT 289 H Alkaline Phosphatase 67 B-Natriuretic Peptide 75 Total Protein 7.0 Albumin 3.7 10/31/23 10/31/23 05:16 05:21 WBC 18.8 H RBC 4.35 Hgb 10.0 L Hct 32.4 L MCV 74.5 L MCH 23.0 L MCHC 30.9 L RDW 18.4 H Plt Count 354 MPV 11.7 Immature Gran % (Auto) Cancelled Neut % (Auto) Cancelled Lymph % (Auto) Cancelled [place] % (Auto) Cancelled Eos % (Auto) Cancelled Baso % (Auto) Cancelled Lymph # (Auto) Cancelled [place] # (Auto) Cancelled Eos # (Auto) Cancelled Baso # (Auto) Cancelled Abs Immat Gran (auto) Cancelled Absolute Neuts (auto) Cancelled Absolute Nucleated RBC 0.220 H Nucleated RBC % (auto) 1.2 H Neutrophils % (Manual) 65 Band Neutrophils % 12 H Lymphocytes % (Manual) 7 L Atypical Lymphs % (Man) 2 Monocytes % (Manual) 8 Eosinophils % (Manual) 1 Metamyelocytes % 5 Abs Neuts (Manual) 14.5 H Lymphocytes # (Manual) 1.3 Atyp Lymphs # (Manual) 0.4 Monocytes # (Manual) 1.5 H Eosinophils # (Manual) 0.2 Metamyelocytes # 0.9 Nucleated RBCs 1 H Platelet Estimate NORMAL Large Platelets PRESENT Plt Morphology Comment NOTED RBC Morphology NOTED Polychromasia 1+ (0-2) Hypochromasia 1+ (5-14) Microcytosis 1+ (5-14) Target Cells 1+ (5-14) Ovalocytes 1+ (5-14) VBG pH 7.57 H VBG pCO2 34 VBG pO2 42 VBG HCO3 31 H VBG O2 Saturation 73.0 VBG Base Excess 9.6 Sodium 142 Potassium 4.8 Chloride 101 Carbon Dioxide 30 H Anion Gap 16 BUN 25 H Creatinine 0.72 Estim Creat Clear Calc 161.1 Estimated GFR > 60 Random Glucose 126 H Calcium 9.1 Phosphorus 4.7 H Magnesium 2.6 Total Bilirubin 0.4 AST 117 H ALT 278 H Alkaline Phosphatase 62 B-Natriuretic Peptide Total Protein 6.8 Albumin 3.7 Microbiology Microbiology Results: Microbiology 10/30/23 22:50 Sputum - Expectorated Gram Stain - Final 10/30/23 22:50 Sputum - Expectorated Sputum Culture - Preliminary No growth to date. 10/28/23 16:07 Blood - Venous Blood Culture - Preliminary Staphylococcus aureus Coag negative Staphylococcus 10/28/23 16:07 Blood - Venous Blood Culture - Preliminary Gram positive cocci Progress Note: A&P Assessment and plan (1) Acute respiratory failure with hypoxia: Status: Acute (2) Pneumonia due to gram-positive bacteria: Status: Acute (3) Atypical pneumonia: Status: Acute (4) Acute sepsis: Status: Acute (5) Multifocal pneumonia: Status: Acute (6) Elevated WBC count: Status: Acute Plan Acute hypoxemic respiratory failure: Secondary to bilateral pneumonia as seen on the chest CT CTA negative for any pulmonary embolism Respiratory viral panel positive for mycoplasma, blood cultures positive for staph- oxacillin sensitive Currently on ceftriaxone and azithromycin, antibiotics changed to Zosyn and azithromycin given her severity of illness Currently on 100% FiO2 on the OptiFlow. She was on BiPAP support during the night, if needed we will place her back on BiPAP support during the night. 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
[2023-10-31 14:25] LABS: MRSA Nasal PCR NEGATIVE (Negative); SA Nasal PCR POSITIVE (Negative)
[2023-10-31] MEDS: Azithromycin 500 MG in 0.9 % Sodium Chloride 250 ML 125 MG IV (19:58)
[2023-11-01] VITALS (44 sets, daily range): BP systolic 102–138; BP diastolic 49–91; PULSE 79–112; RESP 15–32; TEMP 36.4–36.9; O2SAT 90–100; BMI 41.9
[2023-11-01] MEDS: fentaNYL citrate/PF 100 MCG/2 ML VIAL 50 MCG IVPUSH ×6 (00:20→23:25)
[2023-11-01] MEDS: 0.9 % Sodium Chloride Flush 3 ML SYRINGE IVFLUSH ×4 (00:21→23:25)
[2023-11-01] MEDS: Piperacillin Sodium/Tazobactam 4.5 GM in 0.9 % Sodium Chloride 100 ML IV ×4 (02:17→21:50)
[2023-11-01] MEDS: Albuterol/Iprat 2.5/0.5MG 3 ML AMPUL.NEB INHALE ×4 (02:24→19:11)
[2023-11-01 05:18] LABS: MANUAL DIFF FLAG NO
[2023-11-01 05:20] LABS: Basophils Absolute Auto 0.1 X10*3/uL (0.0-0.2); Basophils Percent Auto 0.5 % (0-2); Eosinophils Percent Auto 0.1 % (0-4); Hematocrit 33.7 % (37.0-47.0); Hemoglobin 10.3 g/dl (12.0-16.0); Imm Gran Abs Auto 1.77 X10*3/uL (0.00-0.03); Imm Gran Pct Auto 9.6 % (0.0-0.4); Lymphocytes Absolute Auto 2.8 X10*3/uL (1.2-4.9); Lymphocytes Percent Auto 15.4 % (20-40); Mean Corpuscular HGB Conc 30.6 g/dl (31.0-35.0); Mean Corpuscular Hemoglobin 22.8 pg (27.0-33.0); Mean Corpuscular Volume 74.7 fL (80.0-98.0); Mean Platelet Volume 11.3 fL (9.4-12.3); Monocytes Absolute Auto 1.5 X10*3/uL (0.1-1.2); Monocytes Percent Auto 7.9 % (2-11); NRBC Pct Auto 0.4 /100WBC (0.0-0.2); Neutrophils Absolute Auto 12.2 x10*3/uL (2.0-8.3); Neutrophils Percent Auto 66.5 % (45-73); Platelet Count 374 X10*3/uL (160-400); Red Blood Count 4.51 X10*6/uL (4.20-5.50); Red Cell Distribution Width 18.6 % (11.0-16.0); SCAN SMEAR FLAG 1; White Blood Count 18.4 X10*3/uL (4.8-10.8)
[2023-11-01 05:22] LABS: VBG Base Excess 4.4 mmol/L; VBG HCO3 26 mmol/L (22-26); VBG pCO2 31 mmHg; VBG pH 7.53 (7.32-7.43); VBG pO2 52 mmHg
[2023-11-01 05:31] LABS: Venous Blood Gas Refer to POC result
[2023-11-01 05:39] LABS: Alanine Aminotransferase 234 U/L (0-31); Albumin Level 3.7 g/dL (3.5-5.0); Alkaline Phosphatase 58 U/L (39-117); Anion Gap 16 (12-20); Aspartate Amino Transferase 62 U/L (5-31); Bilirubin Total 1.5 mg/dL (0.0-1.0); Blood Urea Nitrogen 19 mg/dL (9-16); Calcium 9.1 mg/dL (8.4-10.2); Carbon Dioxide 26 mmol/L (22-29); Chloride 104 mmol/L (96-108); Creatinine Clr Calc Pharmacy 178.4; Estimated Glomerular Filt Rate > 60; Glucose Random 85 mg/dL (60-115); Magnesium 2.6 mg/dL (1.6-2.6); Phosphorus 4.7 mg/dL (2.7-4.5); Potassium 4.6 mmol/L (3.3-5.1); Sodium 141 mmol/L (135-145); Total Protein 6.9 g/dL (6.5-8.0)
--- NOTE | 2023-11-01 07:00 | CA_ITS ---
Transthoracic Echocardiogram Patient (Last, First, Middle): Vania Childers, Gender: Female Date of : 2000 Age: 23 Procedure Date: 11/01/2023 Procedure Type: Transthoracic Echocardiogram Location: ICU Height: 165.1 cm Weight: 120.66 kg BSA: 2.23 m2 Heart Rate: 81 bpm BP: 143 / 80 mmHg Bricklayer'S Assistant: Referring MD: Sukhdev Shirley MD Forklift Material Handler: Philipp Orta MD Symptoms: staph bacteremia Study Quality: Technically Difficult ECG Rhythm: Sinus Conclusions: - 1. Technically limited study 2. Can not rule out vegetations on this study 3. Normal LV ejection fraction of 60-65% with normal diastolic filling pattern 4. Cardiac valvular Doppler within normal limits although valves are not well visualized 5. Normal calculated RV systolic pressure Findings Procedure Information Contrast agent, definity, is being given per protocol without apparent complications. Left Ventricle Normal left ventricular cavity size. The left ventricular systolic function is normal. The visually estimated ejection fraction is between 60-65%. Spectral Doppler is indicative of a normal filling pattern. Right Ventricle The right ventricle was not well visualized. Atria The left atrium was not well visualized. Interatrial shunt cannot be excluded. The right atrium was not well visualized. Aortic Valve The aortic valve was not well visualized. There is no aortic valve stenosis. There is no aortic valve regurgitation. Mitral Valve The mitral valve was not well visualized. There is no mitral valve regurgitation. There is no mitral valve stenosis. Pulmonic Valve The pulmonic valve was not well visualized. Tricuspid Valve The tricuspid valve was not well visualized. The right ventricular systolic pressure is normal. Great Vessels The aorta was not well visualized. The pulmonary artery was not well visualized. Venous The inferior vena cava was not well visualized. Pericardium/Pleural The pericardium was not well visualized. Prior Study Comparison No prior study available for comparison. Recommendations, Care & Conclusions Consider a JUAQUIN if clinically appropriate. Measurements 2D Linear Measurements IVSd: 1.30 0.6-0.9/0.6-1.0 cm LVIDd: 3.53 3.9-5.3/4.2-5.9 cm LVIDd Index: 1.58 2.4-3.2/2.2-3.1 cm/m2 LVIDs: 2.31 2.0-3.6 cm LVPWd: 1.24 0.7-1.1 cm LA Diam: 4.20 2.7-3.8/3.0-4.0 cm LAIDs Index: 1.88 1.5-2.3 cm/m2 LV Mass: 186.85 67-162/88-224 g LV Mass Index: 83.79 43-95/49-115 g/m2 LVOT Diam: 2.10 3.0+(-)1.3 cm Mitral Valve MV Pk E: 0.83 MV PK A: 0.56 MV Decel Time: 122.00 E/A: 1.50 E'Lateral: 14.40 E'Medial: 9.68 E/E' Med: 8.60 E/E' Lat: 5.80 PHT: 36.00 MVA PHT: 6.11 Decel [place]: 6.81 Aortic Valve AoV Pk Kamran: 1.59 AoV Mn Kamran: 0.93 AoV VTI: 0.27 AoV Pk Grad: 10.00 Aov Mn Grad: 4.00 KASSANDRA Cont.VTI: 2.27 LVOT LVOT Pk Kamran: 1.03 LVOT Mn Kamran: 0.64 LVOT VTI: 0.18 LVOT Pk Grad: 4.00 LVOT Mn Grad: 2.00 LVOT Diam: 2.10 LVOT Area: 3.46 Diastolic Function MV Pk E: 0.83 MV Pk A: 0.56 E/A: 1.50 E'Medial: 9.68 E/E' Med: 8.60 E' Laterial: 14.40 E/E' Lat: 5.80 Tricuspid Valve TR Pk Kamran: 2.33 TR Pk Grad: 22.00 RA Press: 3.00 RVSP: 25.00 Great Vessels Aorta Sinus of Valsalva: 2.20 2.0-3.5 cm Ao Asc: 2.40 2.1-3.4 cm Pulmonary Valve PV Pk Kamran: 1.10 Peak PV Grad: 5.00 Updated in Other Vendor System with Status of Final Philipp Orta MD electronically signed on 11/01/2023 11:35:06 AM with status of Final
[2023-11-01] MEDS: Escitalopram Oxalate 20 MG TABLET PO (08:13)
[2023-11-01] MEDS: rifAMPin 300 MG CAPSULE 600 MG PO (08:13)
[2023-11-01] MEDS: Famotidine/PF 20 MG/2 ML VIAL IVPUSH (08:14)
[2023-11-01] MEDS: methylPREDNISolone Sod Succ 125 MG/2 ML VIAL 40 MG IVPUSH (08:18)
--- NOTE | 2023-11-01 08:32 | P.PNCC_ITS ---
Subjective Subjective Date of Service: 11/01/23 Critical Care Time (minutes): 40 Comment: Oxygen requirement slowly improving On high-flow 80% at 45 liters/minute Was on NIPPV overnight She feels better too Physical Exam 2 Vital Signs: Vital Signs: Last Vital Signs Temp 97.5 F 11/01/23 08:00 Pulse 102 H 11/01/23 08:00 Resp 22 H 11/01/23 08:14 BP 106/72 11/01/23 08:00 Pulse Ox 91 L 11/01/23 08:00 O2 Del Method High Flow Nasal C annula 11/01/23 08:00 O2 Flow Rate 50 11/01/23 08:00 FiO2 90 11/01/23 08:00 BMI result Body Mass Index 41.9 General: ill appearing and tired appearing Nutritional Appearance: well nourished and overweight Eyes: appearance normal, both eyes and all related structures; Alignment and Position: alignment normal and position normal Neck: No lymphadenopathy, no thyromegaly Resp: bilateral air entry equal, occasional added sounds present Cardio: Regular rate, regular rhythm; Heart sounds: S1 normal heart sound present and S2 normal heart sound present GI: soft, nontender, no guarding, no hepatosplenomegaly : bladder normal to inspection, bladder normal to palpation, no renal angle tenderness Skin: no rashes or lesions noted and elasticity normal Neuro: oriented to person, oriented to place, oriented to time and moves all extremities Objective Data Labs 11/01/23 05:13 11/01/23 05:13 Labs: Laboratory Results - last 24 hr 10/31/23 11/01/23 10:15 05:13 WBC 18.4 H RBC 4.51 Hgb 10.3 L Hct 33.7 L MCV 74.7 L MCH 22.8 L MCHC 30.6 L RDW 18.6 H Plt Count 374 MPV 11.3 Immature Gran % (Auto) 9.6 H Neut % (Auto) 66.5 Lymph % (Auto) 15.4 L [place] % (Auto) 7.9 Eos % (Auto) 0.1 Baso % (Auto) 0.5 Lymph # (Auto) 2.8 [place] # (Auto) 1.5 H Eos # (Auto) 0.0 Baso # (Auto) 0.1 Abs Immat Gran (auto) 1.77 H Absolute Neuts (auto) 12.2 H Absolute Nucleated RBC 0.080 H Nucleated RBC % (auto) 0.4 H VBG pH 7.53 H VBG pCO2 31 VBG pO2 52 VBG HCO3 26 VBG O2 Saturation 85.0 VBG Base Excess 4.4 Sodium 141 Potassium 4.6 Chloride 104 Carbon Dioxide 26 Anion Gap 16 BUN 19 H Creatinine 0.65 Estim Creat Clear Calc 178.4 Estimated GFR > 60 Random Glucose 85 Calcium 9.1 Phosphorus 4.7 H Magnesium 2.6 Total Bilirubin 1.5 H AST 62 H ALT 234 H Alkaline Phosphatase 58 Total Protein 6.9 Albumin 3.7 Nasal Screen MRSA (PCR) NEGATIVE Nasal S. aureus Screen POSITIVE A Nasal MRSA/S.aureus Interp SEE NOTE Microbiology Microbiology Results: Microbiology 10/30/23 22:50 Sputum - Expectorated Gram Stain - Final 10/30/23 22:50 Sputum - Expectorated Sputum Culture - Preliminary Culture in progress. 10/28/23 16:07 Blood - Venous Blood Culture - Preliminary Staphylococcus aureus Coag negative Staphylococcus 10/28/23 16:07 Blood - Venous Blood Culture - Preliminary Gram positive cocci Progress Note: A&P Assessment and plan (1) Acute respiratory failure with hypoxia: Status: Acute (2) Pneumonia due to gram-positive bacteria: Status: Acute (3) Atypical pneumonia: Status: Acute (4) Acute sepsis: Status: Acute (5) Multifocal pneumonia: Status: Acute Plan Acute hypoxemic respiratory failure: Secondary to bilateral pneumonia as seen on the chest CT CTA negative for any pulmonary embolism Respiratory viral panel positive for mycoplasma, blood cultures positive for staph- oxacillin sensitive, MRSA nares positive On Zosyn and azithromycin given her severity of illness; we will add Zyvox for MRSA coverage Currently on 80% FiO2 on the OptiFlow at 45 liters/minute. She was placed on BiPAP support during the night, if needed we will place her back on BiPAP support during the night. Leukocytosis: WBC count stable at 18,000 Also on Solu-Medrol Blood cultures positive for staph- oxacillin sensitive Pending repeat blood cultures and TTE Morbid obesity: BMI 44.4 We will work on diet once she is better History of glioma: Not sure if the patient has NAPPER RUNNER shunt Continue rifampin given her staph bacteremia and has a NAPPER RUNNER shunt Cardiac: Blood pressure stable Renal: Creatinine normal Net fluid balance net-1050 GI: on semi-solid diet and will advance as tolerated Lines: Peripherals Prophylaxis: Apixaban withheld due to hematuria and menstrual bleeding Quality Stroke Does the patient have a stroke diagnosis?: No VTE Prior VTE?: No VTE Risk Level:: Medical - moderate - high VTE Device Contraindication: Treatment Not Indicated VTE Drug Contraindication: N/A - Med Ordered
[2023-11-01] MEDS: Linezolid/D5W 600 MG/300 ML PIGGYBACK 300 MG IV ×2 (10:32→21:48)
[2023-11-01] MEDS: Enoxaparin Sodium 40 MG/0.4 ML SYRINGE SUBCUT (10:36)
--- NOTE | 2023-11-01 13:27 | HO.WOUND ---
Wound Consult: Initial 23yr old?female admitted to [facility] on 10/28/23 - See progress notes and H&P for detailed history.? Wound consult placed for Bridge of Nose.? Patient and mother agreeable to assessment. Currently patient is off of BIPAP and is on High Flow nasal cannula. The bridge of her nose was assessed - no pigmentation changes noted - tissue remains intact and blanchable. Of note the patients face is pink red throughout at this time. The area of the collumella under the High Flow was assessed and no pressure injury was noted. Recommend using Mepilex lite for preventions should bridge of the nose need exposure to pressure through a device. No topical interventions needed at this time. Re-consult wound care Nurse for wound deterioration or wound changes.
--- NOTE | 2023-11-01 13:37 | MHC.CM.PN ---
Pt continues care in ICU: on high flow and making clinical progress. Pt is a college student and is expected to return once medically stable however, CM will revisit d/c plan w/pt once medically stable.
[2023-11-01] MEDS: Azithromycin 500 MG in 0.9 % Sodium Chloride 250 ML 125 MG IV (21:49)
[2023-11-01] MEDS: Furosemide 20 MG/2 ML VIAL IVPUSH (21:53)
[2023-11-02] VITALS (38 sets, daily range): BP systolic 97–138; BP diastolic 62–94; PULSE 86–114; RESP 15–38; TEMP 36.1–36.9; O2SAT 90–98; BMI 41.9
[2023-11-02] MEDS: Albuterol/Iprat 2.5/0.5MG 3 ML AMPUL.NEB INHALE ×4 (03:01→19:09)
[2023-11-02] MEDS: fentaNYL citrate/PF 100 MCG/2 ML VIAL 50 MCG IVPUSH ×5 (04:22→21:44)
[2023-11-02] MEDS: Piperacillin Sodium/Tazobactam 4.5 GM in 0.9 % Sodium Chloride 100 ML IV ×4 (04:22→21:40)
[2023-11-02 05:39] LABS: VBG Base Excess 6.7 mmol/L; VBG HCO3 28 mmol/L (22-26); VBG pCO2 32 mmHg; VBG pH 7.55 (7.32-7.43); VBG pO2 78 mmHg
[2023-11-02 05:48] LABS: Hematocrit 36.3 % (37.0-47.0); Hemoglobin 11.3 g/dl (12.0-16.0); Mean Corpuscular HGB Conc 31.1 g/dl (31.0-35.0); Mean Corpuscular Hemoglobin 23.1 pg (27.0-33.0); Mean Corpuscular Volume 74.1 fL (80.0-98.0); Mean Platelet Volume 11.3 fL (9.4-12.3); Platelet Count 404 X10*3/uL (160-400); Red Cell Distribution Width 19.3 % (11.0-16.0); White Blood Count 15.3 X10*3/uL (4.8-10.8)
[2023-11-02 05:57] LABS: Venous Blood Gas Refer to POC result
[2023-11-02 06:05] LABS: Alanine Aminotransferase 182 U/L (0-31); Albumin Level 3.7 g/dL (3.5-5.0); Alkaline Phosphatase 56 U/L (39-117); Anion Gap 16 (12-20); Aspartate Amino Transferase 37 U/L (5-31); Bilirubin Total 1.9 mg/dL (0.0-1.0); Blood Urea Nitrogen 19 mg/dL (9-16); Calcium 9.4 mg/dL (8.4-10.2); Carbon Dioxide 27 mmol/L (22-29); Chloride 101 mmol/L (96-108); Creatinine Clr Calc Pharmacy 165.1; Estimated Glomerular Filt Rate > 60; Glucose Random 96 mg/dL (60-115); Magnesium 2.4 mg/dL (1.6-2.6); Phosphorus 4.9 mg/dL (2.7-4.5); Potassium 4.4 mmol/L (3.3-5.1); Sodium 140 mmol/L (135-145); Total Protein 7.3 g/dL (6.5-8.0)
[2023-11-02 06:19] LABS: Atypical Lymph Absolute Manual 0.3 x10*3/uL; Atypical Lymphs Percent Manual 2 % (0-6); Band Neutrophils Percent 5 % (3-5); Lymphocytes Absolute Manual 1.7 X10*3/uL (1.2-4.9); Lymphocytes Percent Manual 11 % (20-40); Metamyelocytes Absolute 0.8 X10*3/uL; Metamyelocytes Percent 5 %; Monocytes Absolute Manual 0.9 X10*3/uL (0.1-1.2); Monocytes Percent Manual 6 % (2-11); Myelocytes Absolute 0.3 X10*/uL; Myelocytes Percent 2 %; Neutrophils Absolute Manual 11.3 X10*3/uL (2.0-8.3); Neutrophils Percent Manual 69 % (45-73)
[2023-11-02 06:20] LABS: Large Platelet PRESENT; Microcytosis 1+ (5-14) /OIF; Ovalocytes 1+ (5-14) /OIF; Platelet Estimate NORMAL (NORMAL); Platelet Morphology Comment NOTED; Polychromasia 1+ (0-2) /OIF; RBC Morphology NOTED
[2023-11-02 06:21] LABS: Toxic Vacuolation PRESENT
[2023-11-02] MEDS: acetaZOLAMIDE sodium 500 MG VIAL IVPUSH (06:25)
[2023-11-02] MEDS: methylPREDNISolone Sod Succ 125 MG/2 ML VIAL 40 MG IVPUSH (07:53)
[2023-11-02] MEDS: Famotidine/PF 20 MG/2 ML VIAL IVPUSH (07:53)
[2023-11-02] MEDS: 0.9 % Sodium Chloride Flush 3 ML SYRINGE IVFLUSH (07:57)
[2023-11-02] MEDS: Linezolid/D5W 600 MG/300 ML PIGGYBACK 300 MG IV ×2 (08:02→20:47)
--- NOTE | 2023-11-02 08:43 | PM.CCPN ---
Subjective Subjective Date of Service: 11/02/23 Critical Care Time (minutes): 40 Comment: Feeling better this morning Oral feeds tolerated for the past 2 days Continues to be on OptiFlow this morning currently at 70% and 40L/min; was on BiPAP support throughout the night Physical Exam Vital Signs: Vital Signs: Last Vital Signs Temp 96.9 F 11/02/23 07:00 Pulse 90 11/02/23 08:00 Resp 15 11/02/23 08:00 BP 120/83 11/02/23 08:00 Pulse Ox 97 11/02/23 08:00 O2 Del Method BiPAP 11/02/23 08:00 O2 Flow Rate 70 11/02/23 08:00 FiO2 75 11/02/23 07:43 BMI result Body Mass Index 41.9 General: Not in acute distress, she is ill appearing and tired appearing Nutritional Appearance: well nourished and overweight Eyes: appearance normal, both eyes and all related structures; Alignment and Position: alignment normal and position normal Neck: No lymphadenopathy, no thyromegaly Resp: bilateral air entry equal, crackles heard in bilateral axillary area Cardio: Regular rate, regular rhythm; Heart sounds: S1 normal heart sound present and S2 normal heart sound present GI: soft, nontender, no guarding, no hepatosplenomegaly : bladder normal to inspection, bladder normal to palpation, no renal angle tenderness Skin: no rashes or lesions noted and elasticity normal Neuro: oriented to person, oriented to place, oriented to time and moves all extremities Objective Data Labs 11/02/23 05:31 11/02/23 05:31 Labs: Laboratory Results - last 24 hr 10/31/23 11/02/23 11/02/23 05:21 05:28 05:31 WBC 15.3 H RBC 4.90 Hgb 11.3 L Hct 36.3 L MCV 74.1 L MCH 23.1 L MCHC 31.1 RDW 19.3 H Plt Count 404 H MPV 11.3 Immature Gran % (Auto) Cancelled Neut % (Auto) Cancelled Lymph % (Auto) Cancelled [place] % (Auto) Cancelled Eos % (Auto) Cancelled Baso % (Auto) Cancelled Lymph # (Auto) Cancelled [place] # (Auto) Cancelled Eos # (Auto) Cancelled Baso # (Auto) Cancelled Abs Immat Gran (auto) Cancelled Absolute Neuts (auto) Cancelled Absolute Nucleated RBC 0.000 Nucleated RBC % (auto) 0.0 Neutrophils % (Manual) 69 Band Neutrophils % 5 Lymphocytes % (Manual) 11 L Atypical Lymphs % (Man) 2 Monocytes % (Manual) 6 Metamyelocytes % 5 Myelocytes % 2 Abs Neuts (Manual) 11.3 H Lymphocytes # (Manual) 1.7 Atyp Lymphs # (Manual) 0.3 Monocytes # (Manual) 0.9 Metamyelocytes # 0.8 Myelocytes # 0.3 Toxic Vacuolation PRESENT Platelet Estimate NORMAL Large Platelets PRESENT Plt Morphology Comment NOTED RBC Morphology NOTED Polychromasia 1+ (0-2) Microcytosis 1+ (5-14) Ovalocytes 1+ (5-14) Smear Path Review SEE NOTE VBG pH 7.55 H VBG pCO2 32 VBG pO2 78 VBG HCO3 28 H VBG O2 Saturation 97.0 VBG Base Excess 6.7 Sodium 140 Potassium 4.4 Chloride 101 Carbon Dioxide 27 Anion Gap 16 BUN 19 H Creatinine 0.68 Estim Creat Clear Calc 165.1 Estimated GFR > 60 Random Glucose 96 Calcium 9.4 Phosphorus 4.9 H Magnesium 2.4 Total Bilirubin 1.9 H AST 37 H ALT 182 H Alkaline Phosphatase 56 Total Protein 7.3 Albumin 3.7 Microbiology Microbiology Results: Microbiology 10/31/23 11:45 Blood - Venous Blood Culture - Preliminary No growth after 24 hours. 10/31/23 11:45 Blood - Venous Blood Culture - Preliminary No growth after 24 hours. 10/28/23 16:07 Blood - Venous Blood Culture - Final Staphylococcus aureus Coag negative Staphylococcus 10/28/23 16:07 Blood - Venous Blood Culture - Final Viridans streptococcus group 10/30/23 22:50 Sputum - Expectorated Gram Stain - Final 10/30/23 22:50 Sputum - Expectorated Sputum Culture - Preliminary Culture in progress. Progress Note: A&P Assessment and plan (1) Acute respiratory failure with hypoxia: Status: Acute (2) Pneumonia due to gram-positive bacteria: Status: Acute (3) Atypical pneumonia: Status: Acute (4) Acute sepsis: Status: Acute (5) Multifocal pneumonia: Status: Acute Plan Acute hypoxemic respiratory failure: Secondary to bilateral pneumonia as seen on the chest CT CTA negative for any pulmonary embolism Respiratory viral panel positive for mycoplasma, blood cultures positive for staph- oxacillin sensitive, MRSA nares positive On Zosyn and azithromycin given her severity of illness; and Zyvox for MRSA coverage Currently on 70% FiO2 on the OptiFlow at 45 liters/minute. She was placed on BiPAP support during the night, if needed we will place her back on BiPAP support during the night. Leukocytosis: WBC count down to 15k this morning Also on Solu-Medrol Blood cultures positive for staph- oxacillin sensitive and strep which might be contaminant TTE did not show any evidence of endocarditis Repeat blood cultures are negative so far Morbid obesity: BMI 44.4 Needs better nutrition History of glioma: Not sure if the patient has MARKETING REPORTING ANALYST shunt Continue rifampin given her staph bacteremia and has a MARKETING REPORTING ANALYST shunt Cardiac: Blood pressure stable Renal: Creatinine normal Net fluid balance net-1050 GI: on semi-solid diet and will advance as tolerated Lines: Peripherals Prophylaxis: Lamar Called [facility] for transfer as per parents request yesterday and again today but was deferred by them as they do not have any ICU beds. We will call them again tomorrow in the morning for a transfer. Quality Stroke Does the patient have a stroke diagnosis?: No VTE Prior VTE?: No VTE Risk Level:: Medical - moderate - high VTE Device Contraindication: Treatment Not Indicated VTE Drug Contraindication: N/A - Med Ordered
--- NOTE | 2023-11-02 09:55 | MHC.CM.PN ---
Pt continues care in ICU: will continue HiFlow O2: Family is requesting transfer to [facility] where pt has received care - MD to facilitate. CM to follow
[2023-11-02] MEDS: Escitalopram Oxalate 20 MG TABLET PO (09:58)
[2023-11-02] MEDS: rifAMPin 300 MG CAPSULE 600 MG PO (09:58)
[2023-11-02] MEDS: Enoxaparin Sodium 40 MG/0.4 ML SYRINGE SUBCUT (09:59)
[2023-11-02] MEDS: polyethylene glycoL 3350 17 GM POWD.PACK PO (15:03)
[2023-11-02] MEDS: Azithromycin 500 MG in 0.9 % Sodium Chloride 250 ML 125 MG IV (19:35)
[2023-11-03] VITALS (24 sets, daily range): BP systolic 107–141; BP diastolic 57–91; PULSE 94–120; RESP 15–32; TEMP 36.6–37.1; O2SAT 92–98; BMI 39.6
[2023-11-03] MEDS: fentaNYL citrate/PF 100 MCG/2 ML VIAL 50 MCG IVPUSH ×2 (01:19→05:25)
[2023-11-03] MEDS: Albuterol/Iprat 2.5/0.5MG 3 ML AMPUL.NEB INHALE ×3 (02:15→15:34)
[2023-11-03] MEDS: Piperacillin Sodium/Tazobactam 4.5 GM in 0.9 % Sodium Chloride 100 ML IV ×4 (03:17→23:32)
[2023-11-03 05:11] LABS: VBG HCO3 20 mmol/L (22-26); VBG pCO2 29 mmHg; VBG pH 7.43 (7.32-7.43); VBG pO2 45 mmHg
[2023-11-03 05:13] LABS: Venous Blood Gas Refer to POC result
[2023-11-03] MEDS: Famotidine/PF 20 MG/2 ML VIAL IVPUSH (05:22)
[2023-11-03 05:34] LABS: Hematocrit 37.4 % (37.0-47.0); Hemoglobin 11.3 g/dl (12.0-16.0); Mean Corpuscular HGB Conc 30.2 g/dl (31.0-35.0); Mean Platelet Volume 11.1 fL (9.4-12.3); Platelet Count 416 X10*3/uL (160-400); Red Blood Count 4.92 X10*6/uL (4.20-5.50); Red Cell Distribution Width 19.7 % (11.0-16.0); White Blood Count 14.7 X10*3/uL (4.8-10.8)
[2023-11-03 05:48] LABS: Alanine Aminotransferase 140 U/L (0-31); Albumin Level 3.6 g/dL (3.5-5.0); Alkaline Phosphatase 54 U/L (39-117); Anion Gap 14 (12-20); Aspartate Amino Transferase 29 U/L (5-31); Bilirubin Total 1.3 mg/dL (0.0-1.0); Blood Urea Nitrogen 16 mg/dL (9-16); Calcium 9.7 mg/dL (8.4-10.2); Carbon Dioxide 22 mmol/L (22-29); Chloride 107 mmol/L (96-108); Creatinine Clr Calc Pharmacy 155.2; Estimated Glomerular Filt Rate > 60; Glucose Random 98 mg/dL (60-115); Magnesium 2.3 mg/dL (1.6-2.6); Phosphorus 3.4 mg/dL (2.7-4.5); Potassium 3.8 mmol/L (3.3-5.1); Sodium 139 mmol/L (135-145); Total Protein 7.2 g/dL (6.5-8.0)
[2023-11-03 05:58] LABS: Eosinophils Absolute Manual 0.3 X10*3/uL (0.0-0.4); Eosinophils Percent Manual 2 % (0-4); Lymphocytes Absolute Manual 2.2 X10*3/uL (1.2-4.9); Lymphocytes Percent Manual 15 % (20-40); Metamyelocytes Absolute 0.1 X10*3/uL; Metamyelocytes Percent 1 %; Monocytes Absolute Manual 0.7 X10*3/uL (0.1-1.2); Monocytes Percent Manual 5 % (2-11); Neutrophils Percent Manual 77 % (45-73); RBC Morphology NOTED
[2023-11-03 05:59] LABS: Giant Platelet PRESENT; Large Platelet PRESENT; Microcytosis 1+ (5-14) /OIF; Platelet Estimate NORMAL (NORMAL); Platelet Morphology Comment NOTED
[2023-11-03 06:00] LABS: Hypochromasia 1+ (5-14) /OIF; Ovalocytes 1+ (5-14) /OIF; Polychromasia 1+ (0-2) /OIF
[2023-11-03 06:12] LABS: Band Neutrophils Percent 0 % (3-5); Neutrophils Absolute Manual 11.3 X10*3/uL (2.0-8.3)
[2023-11-03] MEDS: Linezolid/D5W 600 MG/300 ML PIGGYBACK 300 MG IV ×2 (08:20→22:22)
[2023-11-03] MEDS: methylPREDNISolone Sod Succ 125 MG/2 ML VIAL 40 MG IVPUSH (08:21)
[2023-11-03] MEDS: Escitalopram Oxalate 20 MG TABLET PO (08:21)
[2023-11-03] MEDS: 0.9 % Sodium Chloride Flush 3 ML SYRINGE IVFLUSH ×3 (08:21→23:38)
[2023-11-03] MEDS: rifAMPin 300 MG CAPSULE 600 MG PO (08:21)
--- NOTE | 2023-11-03 08:37 | PM.CCPN ---
Subjective Subjective Date of Service: 11/03/23 Critical Care Time (minutes): 35 Comment: Improving, remained off BiPAP over 24 hours now On OptiFlow, oxygen requirement slowly decreasing Physical Exam Vital Signs: Vital Signs: Last Vital Signs Temp 98.4 F 11/03/23 08:00 Pulse 107 H 11/03/23 08:00 Resp 32 H 11/03/23 08:00 BP 115/73 11/03/23 08:00 Pulse Ox 92 11/03/23 08:00 O2 Del Method High Flow Nasal C annula 11/03/23 08:00 O2 Flow Rate 45 11/03/23 08:00 FiO2 55 11/03/23 08:00 BMI result Body Mass Index 39.6 General: ill appearing and tired appearing Nutritional Appearance: well nourished and overweight Eyes: appearance normal, both eyes and all related structures; Alignment and Position: alignment normal and position normal Neck: No lymphadenopathy, no thyromegaly Resp: bilateral air entry equal, occasional added sounds present mostly in bilateral axillary areas Cardio: Regular rate, regular rhythm; Heart sounds: S1 normal heart sound present and S2 normal heart sound present GI: soft, nontender, no guarding, no hepatosplenomegaly : bladder normal to inspection, bladder normal to palpation, no renal angle tenderness Skin: no rashes or lesions noted and elasticity normal Neuro: oriented to person, oriented to place, oriented to time and moves all extremities Objective Data Labs 11/03/23 05:07 11/03/23 05:07 Labs: Laboratory Results - last 24 hr 11/03/23 11/03/23 05:02 05:07 WBC 14.7 H RBC 4.92 Hgb 11.3 L Hct 37.4 MCV 76.0 L MCH 23.0 L MCHC 30.2 L RDW 19.7 H Plt Count 416 H MPV 11.1 Immature Gran % (Auto) Cancelled Neut % (Auto) Cancelled Lymph % (Auto) Cancelled Hawkins % (Auto) Cancelled Eos % (Auto) Cancelled Baso % (Auto) Cancelled Lymph # (Auto) Cancelled Hawkins # (Auto) Cancelled Eos # (Auto) Cancelled Baso # (Auto) Cancelled Abs Immat Gran (auto) Cancelled Absolute Neuts (auto) Cancelled Absolute Nucleated RBC 0.000 Nucleated RBC % (auto) 0.0 Neutrophils % (Manual) 77 H Band Neutrophils % 0 L Lymphocytes % (Manual) 15 L Monocytes % (Manual) 5 Eosinophils % (Manual) 2 Metamyelocytes % 1 Abs Neuts (Manual) 11.3 H Lymphocytes # (Manual) 2.2 Monocytes # (Manual) 0.7 Eosinophils # (Manual) 0.3 Metamyelocytes # 0.1 Platelet Estimate NORMAL Large Platelets PRESENT Giant Platelets PRESENT Plt Morphology Comment NOTED RBC Morphology NOTED Polychromasia 1+ (0-2) Hypochromasia 1+ (5-14) Microcytosis 1+ (5-14) Ovalocytes 1+ (5-14) VBG pH 7.43 VBG pCO2 29 VBG pO2 45 VBG HCO3 20 L VBG O2 Saturation 74.0 VBG Base Excess -3.0 Sodium 139 Potassium 3.8 Chloride 107 Carbon Dioxide 22 Anion Gap 14 BUN 16 Creatinine 0.70 Estim Creat Clear Calc 155.2 Estimated GFR > 60 Random Glucose 98 Calcium 9.7 Phosphorus 3.4 Magnesium 2.3 Total Bilirubin 1.3 H AST 29 ALT 140 H Alkaline Phosphatase 54 Total Protein 7.2 Albumin 3.6 Microbiology Microbiology Results: Microbiology 10/31/23 11:45 Blood - Venous Blood Culture - Preliminary No growth after 48 hours. 10/31/23 11:45 Blood - Venous Blood Culture - Preliminary No growth after 48 hours. 10/30/23 22:50 Sputum - Expectorated Gram Stain - Final 10/30/23 22:50 Sputum - Expectorated Sputum Culture - Final 10/28/23 16:07 Blood - Venous Blood Culture - Final Staphylococcus aureus Coag negative Staphylococcus 10/28/23 16:07 Blood - Venous Blood Culture - Final Viridans streptococcus group Progress Note: A&P Assessment and plan (1) Acute respiratory failure with hypoxia: Status: Acute (2) Pneumonia due to gram-positive bacteria: Status: Acute (3) Atypical pneumonia: Status: Acute (4) Acute sepsis: Status: Acute (5) Fever: Status: Acute (6) Multifocal pneumonia: Status: Acute Plan Acute hypoxemic respiratory failure: Secondary to bilateral pneumonia as seen on the chest CT CTA negative for any pulmonary embolism Respiratory viral panel positive for mycoplasma, blood cultures positive for staph- oxacillin sensitive, MRSA nares positive On Zosyn and azithromycin given her severity of illness; and Zyvox for MRSA coverage- we will discontinue Zyvox and rifampin after 5 days Currently on 50% FiO2 on the OptiFlow at 45 liters/minute. PRN BiPAP support during the night. Leukocytosis: WBC count down to 14k this morning Also on Solu-Medrol which we will stop today Blood cultures positive for staph- oxacillin sensitive and strep which might be contaminant TTE did not show any evidence of endocarditis Repeat blood cultures are negative so far Morbid obesity: BMI 44.4 Needs better nutrition on oral feeds History of glioma: Not sure if the patient has FINISHING TRIMMER shunt Continue rifampin given her staph bacteremia and has a FINISHING TRIMMER shunt can discontinue after 5 days Cardiac: Blood pressure stable Renal: Creatinine normal Net fluid balance net + 1litre GI: on semi-solid diet and will advance as tolerated Lines: Peripherals Prophylaxis: Lovenox We will transfer her to floor today Quality Stroke Does the patient have a stroke diagnosis?: No VTE Prior VTE?: No VTE Risk Level:: Medical - moderate - high VTE Device Contraindication: Treatment Not Indicated VTE Drug Contraindication: N/A - Med Ordered
[2023-11-03] MEDS: Enoxaparin Sodium 40 MG/0.4 ML SYRINGE SUBCUT (09:48)
--- NOTE | 2023-11-03 13:48 | MHC.CM.PN ---
Pt will be transferred to [facility] today for continued supportive care. 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 The plan is for a return to school however, she may return to home in the interim. Family to transport.
--- NOTE | 2023-11-03 16:36 | P.EN_ITS ---
Event Note Date of Service: 11/03/23 Event Note: This is a 23-year-old female admitted for respiratory failure due to underlying mycoplasma pneumonia requiring BiPAP therapy Downgraded to the medical floor 11/02 Initially requiring high-flow, now down to 5 L via Araiza cannula Further management as per ICU H&P Per family preference to transfer to [facility] where she had previously received care, per ICU attending no beds available today Time Spent With Patient Time: Total time managing care of this patient today ____ minutes.
[2023-11-03] MEDS: LORazepam 2 MG/ML VIAL 0.5 MG IVPUSH (19:50)
[2023-11-03] MEDS: Azithromycin 500 MG in 0.9 % Sodium Chloride 250 ML 125 MG IV (20:00)
--- NOTE | 2023-11-03 23:28 | P.CNID_ITS ---
History of Present Illness Data of Consult Service Date: 11/03/23 Requesting physician: Daria Cameron Primary Care Provider: Unknown Physician HPI Reason for consult: bacteremia,mycoplasma pneumonia She presents with weakness and four days rhinorrhea as well as some chills. 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 She has diminished oxygen saturation to 50s. She has on 10/27 viridans strep and MSSA, both x1. There was also stap epi as well. These are reported peripheral blood draws. Review of Systems 2 Review of Systems: Yes all other systems are reviewed and are negative PMFSH Past Medical History Medical History Brain tumor Family History Family history: reviewed and not pertinent Social History Social History Household Members: Other Household Members Other:: from home with parents/sibling; at college/dorm currently Housing: House Do you presently have visiting nurse or other home services: No Comment: family in room Patient Tobacco Use Status: Never used Tobacco Smoked in Last 30 Days: No e-Cigarette/Vaping Use: Never Used Use of substances other than those prescribed or required for medical reasons: No Currently Displaying Signs/Symptoms of Drug Intoxication Withdrawal: No Any prior treatment program specific to substance use: No Have you been hit, kicked, punched, or otherwise hurt by someone within the past year? If so, by whom?: No Do you feel safe in your current relationship?: No Current Relationship Is there a partner from a previous relationship who is making you feel unsafe now?: No Are you made to feel afraid or neglected: No Rastafari Healthcare Practices: Yarsani Advance Directives: No Advance Directives Information Provided: No Do you have a plan to hurt others: No Plan Recently lost weight without trying: No Nutrition Risks: No Nutritional Risk Patient : No : No Poor oral hygiene: No service: No Travel History Ebola Risk: Travel/Contact With Anyone From Affected Area/s: No Meds Allergies Allergy/AdvReac Type Severity Reaction Status Date / Time No Known Allergies Allergy Verified 10/28/23 15:13 Active Medications: Current Medications Albuterol Sulfate (Albuterol Sulfate (0.083%) 2.5 Mg/3 Ml Vial.Neb) 2.5 mg INHALE Q2H PRN PRN Reason: Wheezing Last Admin: 10/30/23 11:43 Dose: 2.5 mg Albuterol/Ipratropium (Albuterol/Iprat 2.5/0.5mg 3 Ml Ampul.Neb) 3 ml INHALE Q6H [facility] Last Admin: 11/03/23 18:46 Dose: Not Given Enoxaparin Sodium (Enoxaparin Sodium 40 Mg/0.4 Ml Syringe) 40 mg SUBCUT Q24H [facility] Last Admin: 11/03/23 09:48 Dose: 40 mg Escitalopram Oxalate (Escitalopram Oxalate 20 Mg Tablet) 20 mg PO DAILY [facility] Last Admin: 11/03/23 08:21 Dose: 20 mg Famotidine (Famotidine/Pf 20 Mg/2 Ml Vial) 20 mg IVPUSH DAILY [facility] Last Admin: 11/03/23 05:22 Dose: 20 mg Azithromycin 500 mg/ Sodium (Chloride) 250 mls @ 125 mls/hr IV Q24H [facility] Last Infusion: 11/03/23 22:30 Dose: Infused Piperacillin Sod/Tazobactam (Sod 4.5 gm/ Sodium Chloride) 100 mls @ 200 mls/hr IV Q6H [facility] Last Infusion: 11/03/23 19:19 Dose: Infused Linezolid (Zyvox/D5w) 600 mg in 300 mls @ 300 mls/hr IV Q12H [facility] Last Admin: 11/03/23 22:22 Dose: 300 mls/hr Lorazepam (Lorazepam 1 Mg Tablet) 1 mg PO Q6H PRN PRN Reason: anxiety/restlessness Ondansetron HCl (Ondansetron Hcl 4 Mg/2 Ml Vial) 4 mg IVPUSH Q4H PRN PRN Reason: Nausea and Vomiting Polyethylene Glycol (Polyethylene Glycol 3350 17 Gm Powd.Pack) 17 gm PO DAILY [facility] Last Admin: 11/03/23 08:21 Dose: Not Given Rifampin (Rifampin 300 Mg Capsule) 600 mg PO DAILY [facility] Last Admin: 11/03/23 08:21 Dose: 600 mg Sodium Chloride (0.9 % Sodium Chloride Flush 3 Ml Syringe) 3 ml IVFLUSH QSHIFT [facility] Last Admin: 11/03/23 18:25 Dose: 3 ml Home Medications ?Medication ?Instructions ?Recorded ?Confirmed ?Last Taken ?Type citalopram 40 mg tablet 40 mg PO DAILY 10/28/23 10/28/23 10/27/23 History ibuprofen 200 mg tablet 200 mg PO Q6H PRN Pain 10/28/23 10/28/23 Unknown History Physical Exam 2 Vital Signs: Vital Signs: Last Vital Signs Temp 97.8 F 11/03/23 19:18 Pulse 111 H 11/03/23 19:18 Resp 20 11/03/23 15:40 BP 126/78 11/03/23 19:18 Pulse Ox 98 11/03/23 19:18 O2 Del Method Nasal Cannula 11/03/23 19:18 O2 Flow Rate 4 11/03/23 19:18 FiO2 45 11/03/23 11:00 BMI result Body Mass Index 39.6 Const: General: cooperative HEENT: Head: Yes normal to inspection Face and sinus: Yes normal facial exam Mouth: Normal oral and palatal mucosa present Teeth and gingiva: d entition normal Eyes: General: appearance normal, both eyes and all related structures P upils: Equal, round and reactive pupils present Resp: Effort & Inspection: normal respiratory effort Cardio: Rate: regular rate Rhythm: regular rhythm GI: Palpation (GI): Soft to palpation and nontender : General: Yes no CVA tenderness Back/Spine/Pelvis: Back: no CVA tenderness Skin: General skin exam: no rashes or lesions noted Neuro: General: moves all extremities Cranial nerves: Yes Equal, round and reactive pupils present Extrem: General: Yes normal to inspection Psych: Appearance: grossly normal Results Labs 11/03/23 05:07 11/03/23 05:07 Labs: Short CBC 11/03/23 Range/Units 05:07 WBC 14.7 H (4.8-10.8) X10*3/uL Hgb 11.3 L (12.0-16.0) g/dl Hct 37.4 (37.0-47.0) % Plt Count 416 H (160-400) X10*3/uL BMP 11/03/23 05:07 Sodium 139 Potassium 3.8 Chloride 107 Carbon Dioxide 22 BUN 16 Creatinine 0.70 Calcium 9.7 Liver Function 11/03/23 Range/Units 05:07 Total Bilirubin 1.3 H (0.0-1.0) mg/dL AST 29 (5-31) U/L ALT 140 H (0-31) U/L Alkaline Phosphatase 54 (39-117) U/L Albumin 3.6 (3.5-5.0) g/dL Microbiology Microbiology Results: Microbiology 10/31/23 11:45 Blood - Venous Blood Culture - Preliminary No growth after 48 hours. 10/31/23 11:45 Blood - Venous Blood Culture - Preliminary No growth after 48 hours. 10/30/23 22:50 Sputum - Expectorated Gram Stain - Final 10/30/23 22:50 Sputum - Expectorated Sputum Culture - Final 10/28/23 16:07 Blood - Venous Blood Culture - Final Staphylococcus aureus Coag negative Staphylococcus 10/28/23 16:07 Blood - Venous Blood Culture - Final Viridans streptococcus group Assessment and Plan (1) Acute respiratory failure with hypoxia: Status: Acute (2) Atypical pneumonia: Status: Acute (3) Acute sepsis: Status: Acute Plan She has mycoplasma pneumonia likely cause of initial symptoms She has no fever or chills at this time. THere is possible endocarditis She is being ruled out for DVT/PE. Would switch to IV Kefzol 2 g every 8 hoursm possible 4 weeks IV Check JUAQUIN i agrees. MRI brain or check brain CT Continue Rifampin for now
[2023-11-03] MEDS: ondansetron HCL 4 MG/2 ML VIAL IVPUSH (23:32)
[2023-11-03] MEDS: Calcium Carbonate 750 MG TAB.CHEW PO (23:32)
--- NOTE | 2023-11-03 23:42 | PM.EVENT ---
Event Note Date of Service: 11/03/23 Event Note: discuss with Neurosurgery check tap shunt infection. Contine Rifampin for now booster for antibiotics,possibly 2-4 week. Azithromycin, day 08/23 and switch to 500 mg oral. No isolation Kefzol IV, probably four weeks CT head Time Spent With Patient Time: Total time managing care of this patient today ____ minutes.
[2023-11-04] VITALS (7 sets, daily range): BP systolic 97–130; BP diastolic 58–82; PULSE 104–124; RESP 18–24; TEMP 36.2–37.2; O2SAT 92–96; BMI 40.7
[2023-11-04] MEDS: Melatonin 3 MG TABLET 6 MG PO (02:20)
[2023-11-04] MEDS: Prochlorperazine Edisylate 10 MG/2 ML VIAL IVPUSH (02:20)
[2023-11-04] MEDS: LORazepam 1 MG TABLET PO ×2 (05:43→21:02)
[2023-11-04] MEDS: ondansetron HCL 4 MG/2 ML VIAL IVPUSH (05:43)
[2023-11-04 05:52] LABS: Hematocrit 35.2 % (37.0-47.0); Hemoglobin 10.8 g/dl (12.0-16.0); Mean Corpuscular HGB Conc 30.7 g/dl (31.0-35.0); Mean Corpuscular Hemoglobin 23.4 pg (27.0-33.0); Mean Corpuscular Volume 76.2 fL (80.0-98.0); Mean Platelet Volume 10.8 fL (9.4-12.3); Platelet Count 434 X10*3/uL (160-400); Red Blood Count 4.62 X10*6/uL (4.20-5.50); Red Cell Distribution Width 19.5 % (11.0-16.0); White Blood Count 12.2 X10*3/uL (4.8-10.8)
[2023-11-04 06:17] LABS: Alanine Aminotransferase 125 U/L (0-31); Albumin Level 3.5 g/dL (3.5-5.0); Alkaline Phosphatase 55 U/L (39-117); Anion Gap 13 (12-20); Aspartate Amino Transferase 33 U/L (5-31); Bilirubin Direct 0.3 mg/dL (0.0-0.5); Bilirubin Total 0.7 mg/dL (0.0-1.0); Blood Urea Nitrogen 17 mg/dL (9-16); Calcium 9.3 mg/dL (8.4-10.2); Carbon Dioxide 23 mmol/L (22-29); Chloride 109 mmol/L (96-108); Creatinine Clr Calc Pharmacy 175.3; Estimated Glomerular Filt Rate > 60; Glucose Random 98 mg/dL (60-115); Potassium 3.7 mmol/L (3.3-5.1); Sodium 141 mmol/L (135-145); Total Protein 7.1 g/dL (6.5-8.0)
[2023-11-04] MEDS: Calcium Carbonate 750 MG TAB.CHEW PO (06:46)
[2023-11-04] MEDS: Albuterol/Iprat 2.5/0.5MG 3 ML AMPUL.NEB INHALE ×2 (07:17→15:17)
[2023-11-04] MEDS: Famotidine/PF 20 MG/2 ML VIAL IVPUSH (10:57)
[2023-11-04] MEDS: Enoxaparin Sodium 40 MG/0.4 ML SYRINGE SUBCUT (10:57)
[2023-11-04] MEDS: ceFAZolin Sodium/Dextrose,Iso 2 GM/50 ML PIGGYBACK IV ×2 (10:57→18:27)
[2023-11-04] MEDS: Escitalopram Oxalate 20 MG TABLET PO (10:58)
[2023-11-04] MEDS: rifAMPin 300 MG CAPSULE 600 MG PO (10:58)
--- NOTE | 2023-11-04 17:04 | HO.PM.IMPN ---
Subjective Subjective Date of Service: 11/04/23 Interval History: seen and examined this morning follow up for respiratory failure Breathing improving, no fever Review of Systems Review of Systems: Yes all other systems are reviewed and are negative Constitutional Constitutional: Denies chills and Denies fever(s) Cardiovascular Cardiovascular: Denies chest pain and Denies palpitations Respiratory Respiratory: Reports cough Endocrine Endocrine: Denies palpitations Physical Exam Vital Signs: Vital Signs: Last Vital Signs Temp 98.0 F 11/04/23 15:30 Pulse 124 H 11/04/23 15:30 Resp 19 11/04/23 15:30 BP 120/75 11/04/23 15:30 Pulse Ox 92 11/04/23 15:30 O2 Del Method Nasal Cannula 11/04/23 15:30 O2 Flow Rate 2 11/04/23 15:30 FiO2 45 11/03/23 11:00 BMI result Body Mass Index 40.7 Const: General: cooperative, comfortable, no acute distress, alert and awake Nutritional Appearance: overweight Orientation/consciousness: patient oriented x3 Resp: Effort & Inspection: no respiratory distress and no use of accessory muscles Cardio: Rate: regular rate GI: Palpation (GI): nontender Neuro: General: patient oriented x3, moves all extremities and CN's II-XI intact bilaterally Extrem: General: Yes no pedal edema Objective Data Active Medications Albuterol Sulfate (Albuterol Sulfate (0.083%) 2.5 Mg/3 Ml Vial.Neb) 2.5 mg INHALE Q2H PRN PRN Reason: Wheezing Last Admin: 10/30/23 11:43 Dose: 2.5 mg Documented By: TITO Albuterol/Ipratropium (Albuterol/Iprat 2.5/0.5mg 3 Ml Ampul.Neb) 3 ml INHALE RQ6H WHILE AWAKE [facility] Calcium Carbonate (Calcium Carbonate 750 Mg Tab.Chew) 750 mg PO Q4H PRN PRN Reason: Heartburn Last Admin: 11/04/23 06:46 Dose: 750 mg Documented By: KATHY Enoxaparin Sodium (Enoxaparin Sodium 40 Mg/0.4 Ml Syringe) 40 mg SUBCUT Q24H [facility] Last Admin: 11/04/23 10:57 Dose: 40 mg Documented By: YENNY Escitalopram Oxalate (Escitalopram Oxalate 20 Mg Tablet) 20 mg PO DAILY [facility] Last Admin: 11/04/23 10:58 Dose: 20 mg Documented By: YENNY Famotidine (Famotidine/Pf 20 Mg/2 Ml Vial) 20 mg IVPUSH DAILY [facility] Last Admin: 11/04/23 10:57 Dose: 20 mg Documented By: YENNY Azithromycin 500 mg/ Sodium (Chloride) 250 mls @ 125 mls/hr IV Q24H [facility] Last Infusion: 11/03/23 22:30 Dose: Infused Documented By: KATHY Cefazolin Sodium/Dextrose (Ancef) 2 gm in 50 mls @ 100 mls/hr IV Q8H [facility] Last Infusion: 11/04/23 11:30 Dose: Infused Documented By: YENNY Lorazepam (Lorazepam 1 Mg Tablet) 1 mg PO Q6H PRN PRN Reason: anxiety/restlessness Last Admin: 11/04/23 05:43 Dose: 1 mg Documented By: KATHY Melatonin (Melatonin 3 Mg Tablet) 6 mg PO BEDTIME PRN PRN Reason: Insomnia Last Admin: 11/04/23 02:20 Dose: 6 mg Documented By: KATHY Ondansetron HCl (Ondansetron Hcl 4 Mg/2 Ml Vial) 4 mg IVPUSH Q4H PRN PRN Reason: Nausea and Vomiting Last Admin: 11/04/23 05:43 Dose: 4 mg Documented By: KATHY Polyethylene Glycol (Polyethylene Glycol 3350 17 Gm Powd.Pack) 17 gm PO DAILY [facility] Last Admin: 11/04/23 10:27 Dose: Not Given Documented By: YENNY Non-Admin Reason: having stools Prochlorperazine Edisylate (Prochlorperazine Edisylate 10 Mg/2 Ml Vial) 10 mg IVPUSH Q4H PRN PRN Reason: Nausea and Vomiting Last Admin: 11/04/23 02:20 Dose: 10 mg Documented By: KATHY Rifampin (Rifampin 300 Mg Capsule) 600 mg PO DAILY [facility] Last Admin: 11/04/23 10:58 Dose: 600 mg Documented By: YENNY Sodium Chloride (0.9 % Sodium Chloride Flush 3 Ml Syringe) 3 ml IVFLUSH QSHIFT [facility] Last Admin: 11/04/23 16:58 Dose: Not Given Documented By: YENNY Non-Admin Reason: Previously Administered Labs 11/04/23 05:12 11/04/23 05:12 Labs: Laboratory Results - last 24 hr 11/04/23 05:12 MCV 76.2 L MCH 23.4 L MCHC 30.7 L RDW 19.5 H Plt Count 434 H MPV 10.8 Absolute Nucleated RBC 0.000 Nucleated RBC % (auto) 0.0 Anion Gap 13 Estim Creat Clear Calc 175.3 Estimated GFR > 60 Random Glucose 98 Calcium 9.3 Total Bilirubin 0.7 Direct Bilirubin 0.3 AST 33 H ALT 125 H Alkaline Phosphatase 55 Total Protein 7.1 Albumin 3.5 Assessment and Plan (1) Acute respiratory failure with hypoxia: Status: Acute (2) Atypical pneumonia: Status: Acute Plan This is a 23 year old female with 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 CTA negative for pulmonary embolism Respiratory viral panel positive for mycoplasma blood cultures positive for MSSA, Nares +for staph aureus weaned off high flow and bipap and down to 2L NC Afebrile, white count trending down Plan for 10 days of Zithromax Polymicrobial Bacteremia MSSA & strep veridans Repeat blood cultures negative TTE can not rule out vegetation although low suspicion as blood cultures cleared quickly with treatment Seen by ID, recommend 4 weeks IV Kefzol Microcytic anemia No evidence of blood loss H/H stable Above transfusion threshold Transaminitis LFTs trending down Morbid obesity: BMI 44.4 History of glioma: has AGRICULTURAL ENGINEERING TEACHER shunt Initially treated with rifampin due to bacteremia, discussed with neurosurgery at [facility], not likely to have shunt infection. No need for transfer. We will stop rifampin DVT ppx - lovenox will need ongoing stay for MIdline for iv abx Quality Stroke Does the patient have a stroke diagnosis?: No VTE Prior VTE?: No VTE Risk Level:: Medical - moderate - high VTE Device Contraindication: Treatment Not Indicated VTE Drug Contraindication: N/A - Med Ordered
[2023-11-04] MEDS: Azithromycin 500 MG in 0.9 % Sodium Chloride 250 ML 125 MG IV (19:41)
[2023-11-04] MEDS: 0.9 % Sodium Chloride Flush 3 ML SYRINGE IVFLUSH (19:41)
[2023-11-05] VITALS (10 sets, daily range): BP systolic 86–131; BP diastolic 57–75; PULSE 82–130; RESP 12–20; TEMP 36.2–37.2; O2SAT 92–99; BMI 40.3
[2023-11-05] MEDS: ceFAZolin Sodium/Dextrose,Iso 2 GM/50 ML PIGGYBACK IV ×3 (01:34→17:03)
[2023-11-05] MEDS: LORazepam 1 MG TABLET PO (02:52)
--- NOTE | 2023-11-05 03:49 | PC.NURSE ---
Pt Aox4, able to make needs known. During this RN's shift, pt has had a few episodes of anxiety w/crying. She states she does not do well at night and this even happens at college until she adjusts. Distracted pt by talking, reassured her she was safe, asked if she wanted her parents called and she declined. She does have her cell phone bedside. See MAR for med administration. Call dumont within reach. She continues on 2L O2 NC d/t slight desats into the low 80's when sleeping. She recovers quickly.
[2023-11-05 06:51] LABS: Hematocrit 34.9 % (37.0-47.0); Hemoglobin 10.8 g/dl (12.0-16.0); Mean Corpuscular HGB Conc 30.9 g/dl (31.0-35.0); Mean Corpuscular Hemoglobin 23.7 pg (27.0-33.0); Mean Corpuscular Volume 76.5 fL (80.0-98.0); Mean Platelet Volume 10.8 fL (9.4-12.3); Platelet Count 405 X10*3/uL (160-400); Red Blood Count 4.56 X10*6/uL (4.20-5.50); Red Cell Distribution Width 19.4 % (11.0-16.0); White Blood Count 8.5 X10*3/uL (4.8-10.8)
[2023-11-05] MEDS: Albuterol/Iprat 2.5/0.5MG 3 ML AMPUL.NEB INHALE ×2 (07:37→15:33)
[2023-11-05] MEDS: Enoxaparin Sodium 40 MG/0.4 ML SYRINGE SUBCUT (09:02)
[2023-11-05] MEDS: Famotidine/PF 20 MG/2 ML VIAL IVPUSH (09:03)
[2023-11-05] MEDS: Escitalopram Oxalate 20 MG TABLET PO (09:05)
[2023-11-05] MEDS: 0.9 % Sodium Chloride Flush 3 ML SYRINGE IVFLUSH ×2 (09:25→15:41)
--- NOTE | 2023-11-05 13:17 | MHC.CM.PN ---
PT WILL NEED 3 WEEKS OF IV DAPTO AT DC THE GOAL IS TO DC TO HER PARENTS HOME, [address] [place] [address] FOR A WEEK, AND THEN RETURN TO SCHOOL AT [employer] REFERRALS PLACED TO [facility] IN [facility]
--- NOTE | 2023-11-05 13:46 | P.CONCA_ITS ---
History of Present Illness History of Present Illness Date of Service: 11/05/23 Requesting physician: Daria Cameron Consult reason: other (Evaluate for JUAQUIN) Chief complaint: Dyspnea Narrative: I was consulted to see Vania in cardiology consultation today for evaluation for JUAQUIN. Patient was admitted with acute respiratory failure with hypoxemia with pneumonia due to Gram-positive bacteria bilateral with significant sepsis syndrome. Patient was admitted to ICU and subsequently manage. She was treated aggressively with BiPAP and supportive care and antibiotics. She had blood cultures growing both Streptococcus viridans as well as staph species. With antibiotics this have clinically quickly. She has no further episodes of fever or chills or leukocytosis or any signs of recurrent bacteremia. Question was raised for possible JUAQUIN. Patient currently having no symptoms although is very anxious. Heart rate noted to be in 120s to 130s sinus tachycardia. Patient has no fever. Patient has still increased workup breathing and shortness of breath. I interviewed her at bedside along with her parents. She has prior history of morbid obesity, parents said that she might have sleep apnea but never been worked up. She has never had any significant recent cardiovascular issues. 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 Review of Systems 2 Constitutional: Constitutional: Reports poor appetite and Reports weakness Eyes: Eyes: Reports no additional eye complaints Cardiovascular: Cardiovascular: Denies Abdominal Distension, Reports rapid heart rate, Denies leg edema, Denies lightheadedness, Denies Loss of Consciousness, Denies palpitations and Reports dyspnea on exertion Respiratory: Respiratory: Reports cough and Reports dyspnea on exertion Gastrointestinal: Gastrointestinal: Reports no additional gastrointestinal complaints Genitourinary: Genitourinary: Reports no additional female genitourinary complaints Neurologic: Reports system reviewed and no additional complaints, except as documented and Reports weakness Psychiatric: Psychiatric: Reports anxiety Endocrine: Endocrine: Denies palpitations PMFSH Past Medical History Medical History Brain tumor Family History Family history: reviewed and not pertinent Social History Social History Household Members: Other Household Members Other:: from home with parents/sibling; at college/dorm currently Housing: House Do you presently have visiting nurse or other home services: No Comment: family in room patient request assist when getting OOB Patient Tobacco Use Status: Never used Tobacco Smoked in Last 30 Days: No e-Cigarette/Vaping Use: Never Used Use of substances other than those prescribed or required for medical reasons: No Currently Displaying Signs/Symptoms of Drug Intoxication Withdrawal: No Any prior treatment program specific to substance use: No Have you been hit, kicked, punched, or otherwise hurt by someone within the past year? If so, by whom?: No Do you feel safe in your current relationship?: No Current Relationship Is there a partner from a previous relationship who is making you feel unsafe now?: No Are you made to feel afraid or neglected: No [facility] Advance Directives: No Advance Directives Information Provided: No Do you have a plan to hurt others: No Plan Recently lost weight without trying: No Nutrition Risks: No Nutritional Risk Patient : No : No Poor oral hygiene: No service: No Travel History Ebola Risk: Travel/Contact With Anyone From Affected Area/s: No Meds Allergies Allergy/AdvReac Type Severity Reaction Status Date / Time No Known Allergies Allergy Verified 10/28/23 15:13 Active Medications: Current Medications Albuterol Sulfate (Albuterol Sulfate (0.083%) 2.5 Mg/3 Ml Vial.Neb) 2.5 mg INHALE Q2H PRN PRN Reason: Wheezing Last Admin: 10/30/23 11:43 Dose: 2.5 mg Albuterol/Ipratropium (Albuterol/Iprat 2.5/0.5mg 3 Ml Ampul.Neb) 3 ml INHALE RQ6H WHILE AWAKE [facility] Last Admin: 11/05/23 07:37 Dose: 3 ml Calcium Carbonate (Calcium Carbonate 750 Mg Tab.Chew) 750 mg PO Q4H PRN PRN Reason: Heartburn Last Admin: 11/04/23 06:46 Dose: 750 mg Enoxaparin Sodium (Enoxaparin Sodium 40 Mg/0.4 Ml Syringe) 40 mg SUBCUT Q24H [facility] Last Admin: 11/05/23 09:02 Dose: 40 mg Escitalopram Oxalate (Escitalopram Oxalate 20 Mg Tablet) 20 mg PO DAILY [facility] Last Admin: 11/05/23 09:05 Dose: 20 mg Famotidine (Famotidine/Pf 20 Mg/2 Ml Vial) 20 mg IVPUSH DAILY [facility] Last Admin: 09/21/24 09:03 Dose: 20 mg Azithromycin 500 mg/ Sodium (Chloride) 250 mls @ 125 mls/hr IV Q24H [facility] Last Infusion: 11/04/23 21:52 Dose: Infused Cefazolin Sodium/Dextrose (Ancef) 2 gm in 50 mls @ 100 mls/hr IV Q8H [facility] Last Infusion: 11/05/23 09:57 Dose: Infused Lorazepam (Lorazepam 0.5 Mg Tablet) 0.5 mg PO Q8H PRN PRN Reason: anxiety/restlessness Melatonin (Melatonin 3 Mg Tablet) 6 mg PO BEDTIME PRN PRN Reason: Insomnia Last Admin: 11/04/23 02:20 Dose: 6 mg Ondansetron HCl (Ondansetron Hcl 4 Mg/2 Ml Vial) 4 mg IVPUSH Q4H PRN PRN Reason: Nausea and Vomiting Last Admin: 11/04/23 05:43 Dose: 4 mg Polyethylene Glycol (Polyethylene Glycol 3350 17 Gm Powd.Pack) 17 gm PO DAILY [facility] Last Admin: 11/05/23 09:03 Dose: Not Given Prochlorperazine Edisylate (Prochlorperazine Edisylate 10 Mg/2 Ml Vial) 10 mg IVPUSH Q4H PRN PRN Reason: Nausea and Vomiting Last Admin: 11/04/23 02:20 Dose: 10 mg Propranolol HCl (Propranolol Hcl La 60 Mg Cap.Sa.24h) 40 mg PO DAILY [facility]; Protocol Sodium Chloride (0.9 % Sodium Chloride Flush 3 Ml Syringe) [facility] Last Admin: 11/05/23 09:25 Dose: 3 ml Home Medications ?Medication ?Instructions ?Recorded ?Confirmed ?Last Taken ?Type citalopram 40 mg tablet 40 mg PO DAILY 10/28/23 10/28/23 10/27/23 History ibuprofen 200 mg tablet 200 mg PO Q6H PRN Pain 10/28/23 10/28/23 Unknown History Physical Exam 2 Vital Signs: Vital Signs: Last Vital Signs Temp 98.6 F 11/05/23 11:09 Pulse 130 H 11/05/23 11:09 Resp 20 11/05/23 11:09 BP 128/75 11/05/23 11:09 Pulse Ox 94 11/05/23 11:09 O2 Del Method Room Air 11/05/23 11:09 O2 Flow Rate 2 11/05/23 07:38 FiO2 45 11/03/23 11:00 BMI result Body Mass Index 40.3 Const: General: cooperative, comfortable, alert, awake and anxious N utritional Appearance: obese morbidly obese Orientation/consciousness: p atient oriented x3 HEENT: Head: Yes normocephalic and Yes atraumatic Neck: Neck: Yes trachea midline, Yes supple and Yes no JVD Resp: Effort & Inspection: decreased respiratory effort Auscultation: no crackles, no rhonchi, no wheezes and diminished lung sounds Cardio: Jugular venous distension: no JVD Rate: tachycardic Rhythm: r egular rhythm Heart sounds: S1 normal heart sound present, S2 normal heart sound present, no click, no gallops, no murmurs and no rubs GI: Auscultation: normal bowel sounds Skin: General skin exam: no rashes or lesions noted Neuro: General: patient oriented x3 and no focal motor deficits Extrem: General: Yes no clubbing, cyanosis or edema Objective Labs and Meds 11/05/23 06:10 11/04/23 05:12 Lab results: Laboratory Results - last 24 hr 11/05/23 06:10 WBC 8.5 RBC 4.56 Hgb 10.8 L Hct 34.9 L MCV 76.5 L MCH 23.7 L MCHC 30.9 L RDW 19.4 H Plt Count 405 H MPV 10.8 Absolute Nucleated RBC 0.000 Nucleated RBC % (auto) 0.0 Assessment and Plan (1) Acute sepsis: Status: Acute Patient admitted with acute hypoxemic respiratory failure with bilateral and multifocal pneumonia with blood cultures positive both staph and strep species which is unusual. However they cleared very quickly with antibiotics. Currently not having any recurrent bacteremia, fever, leukocytosis. Echocardiogram was limited evaluation of endocarditis although overall LV ejection fraction is normal. She is not having ongoing symptoms that are suggestive of endocarditis at this point in time. Discussed with patient and patient's parents that I do not think that she requires a JUAQUIN at this point in time. Continue antibiotics as per ID recommendations for 4 weeks. Continue supportive care. I would hydrate her aggressively as well for now. (2) Sinus tachycardia: Status: Acute Patient with persistent sinus tachycardia of unclear etiology. There is no overt signs of sepsis at this point time. Question related to decreased pulmonary reserve for bilateral pneumonia and increase work of breathing and has a compensatory mechanism. Check TSH. She has been on anticoagulation although need to rule out pulmonary embolism if a possibility. I would start her on Inderal 40 mg long-acting to, her over compensatory response. I discussed with her about stress mitigation strategy and reduce anxiety. Consider antianxiety treatment as well. Hydrate aggressively. Will sign of the case at this point time. Will follow up with Holter monitor in few weeks time. Thank you for allowing me to partake in his care Procedures Date of Service Date of Service: 11/05/23
[2023-11-05] MEDS: Propranolol HCL 20 MG TABLET PO ×2 (15:41→20:23)
--- NOTE | 2023-11-05 17:01 | HO.PM.IMPN ---
Subjective Subjective Date of Service: 11/05/23 Interval History: seen and examined this morning follow up for respiratory failure, bacteremia Doing well, able to be weaned off of oxygen Review of Systems Review of Systems: Yes all other systems are reviewed and are negative Constitutional Constitutional: Denies chills and Denies fever(s) Cardiovascular Cardiovascular: Denies chest pain Physical Exam Vital Signs: Vital Signs: Last Vital Signs Temp 97.9 F 11/05/23 15:17 Pulse 116 H 11/05/23 15:33 Resp 18 11/05/23 15:33 BP 131/71 11/05/23 15:17 Pulse Ox 92 11/05/23 15:17 O2 Del Method Room Air 11/05/23 15:17 O2 Flow Rate 2 11/05/23 07:38 FiO2 45 11/03/23 11:00 BMI result Body Mass Index 40.3 Const: General: cooperative, comfortable, no acute distress, alert and awake Nutritional Appearance: overweight Orientation/consciousness: patient oriented x3 Resp: Effort & Inspection: no respiratory distress and no use of accessory muscles Cardio: Rate: regular rate GI: Palpation (GI): nontender Neuro: General: patient oriented x3, moves all extremities and CN's II-XI intact bilaterally Extrem: General: Yes no pedal edema Objective Data Active Medications Albuterol Sulfate (Albuterol Sulfate (0.083%) 2.5 Mg/3 Ml Vial.Neb) 2.5 mg INHALE Q2H PRN PRN Reason: Wheezing Last Admin: 10/30/23 11:43 Dose: 2.5 mg Documented By: TITO Albuterol/Ipratropium (Albuterol/Iprat 2.5/0.5mg 3 Ml Ampul.Neb) 3 ml INHALE RQ6H WHILE AWAKE [facility] Last Admin: 11/05/23 15:33 Dose: 3 ml Documented By: MIKE Calcium Carbonate (Calcium Carbonate 750 Mg Tab.Chew) 750 mg PO Q4H PRN PRN Reason: Heartburn Last Admin: 11/04/23 06:46 Dose: 750 mg Documented By: KATHY Enoxaparin Sodium (Enoxaparin Sodium 40 Mg/0.4 Ml Syringe) 40 mg SUBCUT Q24H [facility] Last Admin: 11/05/23 09:02 Dose: 40 mg Documented By: GENARO Escitalopram Oxalate (Escitalopram Oxalate 20 Mg Tablet) 20 mg PO DAILY [facility] Last Admin: 11/05/23 09:05 Dose: 20 mg Documented By: GENARO Famotidine (Famotidine/Pf 20 Mg/2 Ml Vial) 20 mg IVPUSH DAILY [facility] Last Admin: 11/05/23 09:03 Dose: 20 mg Documented By: GENARO Azithromycin 500 mg/ Sodium (Chloride) 250 mls @ 125 mls/hr IV Q24H [facility] Last Infusion: 11/04/23 21:52 Dose: Infused Documented By: ESMER Cefazolin Sodium/Dextrose (Ancef) 2 gm in 50 mls @ 100 mls/hr IV Q8H [facility] Last Infusion: 11/05/23 09:57 Dose: Infused Documented By: GENARO Lorazepam (Lorazepam 0.5 Mg Tablet) 0.5 mg PO Q8H PRN PRN Reason: anxiety/restlessness Melatonin (Melatonin 3 Mg Tablet) 6 mg PO BEDTIME PRN PRN Reason: Insomnia Last Admin: 11/04/23 02:20 Dose: 6 mg Documented By: KATHY Ondansetron HCl (Ondansetron Hcl 4 Mg/2 Ml Vial) 4 mg IVPUSH Q4H PRN PRN Reason: Nausea and Vomiting Last Admin: 11/04/23 05:43 Dose: 4 mg Documented By: KATHY Polyethylene Glycol (Polyethylene Glycol 3350 17 Gm Powd.Pack) 17 gm PO DAILY [facility] Last Admin: 11/05/23 09:03 Dose: Not Given Documented By: GENARO Non-Admin Reason: Patient Refused Prochlorperazine Edisylate (Prochlorperazine Edisylate 10 Mg/2 Ml Vial) 10 mg IVPUSH Q4H PRN PRN Reason: Nausea and Vomiting Last Admin: 11/04/23 02:20 Dose: 10 mg Documented By: KATHY Propranolol HCl (Propranolol Hcl 20 Mg Tablet) 20 mg PO BID [facility] Last Admin: 11/05/23 15:41 Dose: 20 mg Documented By: GENARO Sodium Chloride (0.9 % Sodium Chloride Flush 3 Ml Syringe) 3 ml IVFLUSH QSHIFT [facility] Last Admin: 11/05/23 15:41 Dose: 3 ml Documented By: GENARO Labs 11/05/23 06:10 11/04/23 05:12 Labs: Laboratory Results - last 24 hr 11/05/23 06:10 MCV 76.5 L MCH 23.7 L MCHC 30.9 L RDW 19.4 H Plt Count 405 H MPV 10.8 Absolute Nucleated RBC 0.000 Nucleated RBC % (auto) 0.0 Microbiology Microbiology Results: Microbiology 10/31/23 11:45 Blood Culture - Final Blood - Venous No growth after 5 days. 10/31/23 11:45 Blood Culture - Final Blood - Venous No growth after 5 days. 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 Postop complications of her glioma included NPH for which she had a CYTOTECHNOLOGIST SUPERVISOR shunt placement.? 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 CTA negative for pulmonary embolism, although poor study but b/l doppler US negative for DVT Respiratory viral panel positive for mycoplasma blood cultures positive for MSSA, Nares +for staph aureus weaned off high flow and bipap and able to be weaned off of oxygen Afebrile, white count resolved Plan for 10 days of Zithromax Polymicrobial Bacteremia MSSA & strep veridans Repeat blood cultures negative TTE can not rule out vegetation although low suspicion as blood cultures cleared quickly with treatment. seen by cardiology no indication for JUAQUIN Seen by ID, recommend 4 weeks IV daptomycin plan for midline tuesday sinus tachycardia cardiology rec starting inderol IVF x 1L, check thyroid function, change breathing treatments to xopenex if HR remains persistently elevated will consider further work up Microcytic anemia No evidence of blood loss H/H stable Above transfusion threshold Transaminitis LFTs trending down outpatient follow up Morbid obesity: BMI 44.4 History of glioma: has CYTOTECHNOLOGIST SUPERVISOR shunt Initially treated with rifampin due to bacteremia, discussed with neurosurgery at [facility], not likely to have shunt infection. No need for transfer. We will stop rifampin DVT ppx - lovenox will need ongoing stay for MIdline for iv abx Quality Stroke Does the patient have a stroke diagnosis?: No VTE Prior VTE?: No VTE Risk Level:: Medical - moderate - high VTE Device Contraindication: Treatment Not Indicated VTE Drug Contraindication: N/A - Med Ordered
[2023-11-05] MEDS: Lactated Ringers 1,000 ML 100 ML IVCONT (18:10)
[2023-11-05] MEDS: levalbuterol HCL 1.25 MG/3 ML VIAL.NEB INHALE (19:31)
[2023-11-05] MEDS: Azithromycin 500 MG in 0.9 % Sodium Chloride 250 ML 125 MG IV (20:23)
[2023-11-05] MEDS: DAPTOmycin 700 MG in 0.9 % Sodium Chloride 50 ML 128 MG IV (20:23)
[2023-11-05] MEDS: LORazepam 0.5 MG TABLET PO (21:30)
[2023-11-06 03:41] VITALS: BP 109/58; PULSE 111; RESP 19; TEMP 36.1; O2SAT 95
[2023-11-06 06:00] VITALS: BMI 40.8
[2023-11-06 06:41] LABS: TSH reflex Free T4 1.61 uIU/mL (0.32-4.0)
[2023-11-06 07:30] VITALS: BP 105/66; PULSE 109; RESP 20; TEMP 36.7; O2SAT 92
[2023-11-06] MEDS: 0.9 % Sodium Chloride Flush 3 ML SYRINGE IVFLUSH ×2 (08:01→17:10)
[2023-11-06] MEDS: Escitalopram Oxalate 20 MG TABLET PO (08:02)
[2023-11-06] MEDS: Enoxaparin Sodium 40 MG/0.4 ML SYRINGE SUBCUT (08:06)
[2023-11-06] MEDS: iohexoL 350 MG/ML 100 ML INFUS..BTL IV (10:23)
[2023-11-06 11:08] VITALS: BP 115/73; PULSE 104; RESP 20; TEMP 36.3; O2SAT 92
--- NOTE | 2023-11-06 11:33 | HO.PM.IMPN ---
Subjective Subjective Date of Service: 11/06/23 Interval History: Seen and examined this morning Follow-up for respiratory failure, pneumonia, bacteremia Off of oxygen, sinus tachycardia improving. Patient is feeling well Review of Systems Review of Systems: Yes all other systems are reviewed and are negative Constitutional Constitutional: Denies chills and Denies fever(s) Cardiovascular Cardiovascular: Denies chest pain, Denies palpitations and Denies dyspnea Respiratory Respiratory: Denies cough and Denies dyspnea Endocrine Endocrine: Denies palpitations Physical Exam Vital Signs: Vital Signs: Last Vital Signs Temp 97.3 F 11/06/23 11:08 Pulse 104 H 11/06/23 11:08 Resp 20 11/06/23 11:08 BP 115/73 11/06/23 11:08 Pulse Ox 92 11/06/23 11:08 O2 Del Method Room Air 11/06/23 11:08 O2 Flow Rate 2 11/06/23 03:41 FiO2 45 11/03/23 11:00 BMI result Body Mass Index 40.8 Const: General: cooperative, comfortable, no acute distress, alert and awake Nutritional Appearance: overweight Orientation/consciousness: patient oriented x3 Resp: Other: diminished, no wheeze Effort & Inspection: no respiratory distress and no use of accessory muscles Cardio: Rate: regular rate GI: Palpation (GI): nontender Neuro: General: patient oriented x3, moves all extremities and CN's II-XI intact bilaterally Extrem: General: Yes no pedal edema Objective Data Active Medications Calcium Carbonate (Calcium Carbonate 750 Mg Tab.Chew) 750 mg PO Q4H PRN PRN Reason: Heartburn Last Admin: 11/04/23 06:46 Dose: 750 mg Documented By: KATHY Enoxaparin Sodium (Enoxaparin Sodium 40 Mg/0.4 Ml Syringe) 40 mg SUBCUT Q24H [facility] Last Admin: 11/06/23 08:06 Dose: 40 mg Documented By: GENARO Escitalopram Oxalate (Escitalopram Oxalate 20 Mg Tablet) 20 mg PO DAILY [facility] Last Admin: 11/06/23 08:02 Dose: 20 mg Documented By: GENARO Azithromycin 500 mg/ Sodium (Chloride) 250 mls @ 125 mls/hr IV Q24H [facility] Stop: 11/06/23 21:59 Last Infusion: 11/05/23 22:25 Dose: Infused Documented By: HO.WATKINK Daptomycin 700 mg/ Sodium (Chloride) 64 mls @ 128 mls/hr IV Q24H [facility] Last Infusion: 11/05/23 21:02 Dose: Infused Documented By: RYAN Levalbuterol HCl (Levalbuterol Hcl 1.25 Mg/3 Ml Vial.Neb) 1.25 mg INHALE Q4H PRN PRN Reason: shortness of breath/wheezing Lorazepam (Lorazepam 0.5 Mg Tablet) 0.5 mg PO Q8H PRN PRN Reason: anxiety/restlessness Last Admin: 11/05/23 21:30 Dose: 0.5 mg Documented By: RYAN Melatonin (Melatonin 3 Mg Tablet) 6 mg PO BEDTIME PRN PRN Reason: Insomnia Last Admin: 11/04/23 02:20 Dose: 6 mg Documented By: KATHY Ondansetron HCl (Ondansetron Hcl 4 Mg/2 Ml Vial) 4 mg IVPUSH Q4H PRN PRN Reason: Nausea and Vomiting Last Admin: 11/04/23 05:43 Dose: 4 mg Documented By: KATHY Polyethylene Glycol (Polyethylene Glycol 3350 17 Gm Powd.Pack) 17 gm PO DAILY [facility] Last Admin: 11/06/23 08:02 Dose: Not Given Documented By: GENARO Non-Admin Reason: PT moving bowels Prochlorperazine Edisylate (Prochlorperazine Edisylate 10 Mg/2 Ml Vial) 10 mg IVPUSH Q4H PRN PRN Reason: Nausea and Vomiting Last Admin: 11/04/23 02:20 Dose: 10 mg Documented By: KATHY Sodium Chloride (0.9 % Sodium Chloride Flush 3 Ml Syringe) 3 ml IVFLUSH QSHIFT [facility] Last Admin: 11/06/23 08:01 Dose: 3 ml Documented By: GENARO Labs 11/05/23 06:10 11/04/23 05:12 Labs: Laboratory Results - last 24 hr 11/06/23 05:38 Hold Purple Top SEE NOTE TSH 1.61 Microbiology Microbiology Results: Microbiology 10/31/23 11:45 Blood Culture - Final Blood - Venous No growth after 5 days. 10/31/23 11:45 Blood Culture - Final Blood - Venous No growth after 5 days. 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 Postop complications of her glioma included NPH for which she had a TECHNICIAN SUPPORT ENGINEER shunt placement.? 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 CTA negative for pulmonary embolism Respiratory viral panel positive for mycoplasma blood cultures positive for MSSA, Nares +for staph aureus weaned off high flow and bipap and able to be weaned off of oxygen Afebrile, white count resolved Plan for 10 days of Zithromax to end 11/05 repeat CTA 11/05 confirms no PE and shows improvement in pneumonia Polymicrobial Bacteremia MSSA & strep veridans Repeat blood cultures negative TTE can not rule out vegetation although low suspicion as blood cultures cleared quickly with treatment. seen by cardiology no indication for JUAQUIN Seen by ID, recommend 4 weeks IV daptomycin plan for midline tuesday sinus tachycardia likely due to breathing treatments in the setting of severe respiratory infection TSH normal Breathing treatments changed to Xopenex and and only CTA negative for PE no indication for BB with sinus tachycardia Should continue to improve as pt recovers Microcytic anemia No evidence of blood loss. Likely due to acute medical illness H/H stable Above transfusion threshold outpatient follow up Transaminitis LFTs trending down outpatient follow up Morbid obesity: BMI 44.4 History of glioma: has TECHNICIAN SUPPORT ENGINEER shunt Initially treated with rifampin due to bacteremia, discussed with neurosurgery at [facility], not likely to have shunt infection. No need for transfer. We will stop rifampin DVT ppx - lovenox will need ongoing stay for MIdline for iv abx Quality Stroke Does the patient have a stroke diagnosis?: No VTE Prior VTE?: No VTE Risk Level:: Medical - moderate - high VTE Device Contraindication: Treatment Not Indicated VTE Drug Contraindication: N/A - Med Ordered
[2023-11-06 15:43] VITALS: BP 131/71; PULSE 110; RESP 20; TEMP 36.7; O2SAT 93
[2023-11-06] MEDS: DAPTOmycin 700 MG in 0.9 % Sodium Chloride 50 ML 128 MG IV (18:28)
[2023-11-06 20:00] VITALS: BP 116/72; PULSE 120; RESP 19; TEMP 36.8; O2SAT 92
[2023-11-06] MEDS: Azithromycin 500 MG in 0.9 % Sodium Chloride 250 ML 125 MG IV (20:23)
[2023-11-06] MEDS: LORazepam 0.5 MG TABLET PO (21:23)
[2023-11-07] VITALS: BP 105/59; PULSE 113; RESP 18; TEMP 36.5; O2SAT 95
[2023-11-07] MEDS: Calcium Carbonate 750 MG TAB.CHEW PO (00:32)
--- NOTE | 2023-11-07 02:34 | PC.NURSE ---
Patient A/O X4 , got anxious overnight regarding line placement- as needed Ativan given with good effects. Patient placed on 2L nasal cannula overnight due to frequent desating into the high 80's while sleeping. Patient recovered quickly and continued to sat >94% on 2L while sleeping.
[2023-11-07 03:43] VITALS: BP 144/61; PULSE 110; RESP 19; TEMP 36.1; O2SAT 97
[2023-11-07 05:25] VITALS: BMI 40.8
[2023-11-07 07:49] VITALS: BP 127/60; PULSE 106; RESP 20; TEMP 36.2; O2SAT 94
--- NOTE | 2023-11-07 08:59 | MHC.CM.PN ---
Addendum entered by Miranda Marquez 11/07/23 14:22: TEACH COMPLETED PT WILL DC TO HER PARENTS HOME TODAY [facility] WILL DELIVER MEDS AND SUPPLIES BEFORE HER MEDS ARE DUE TOMORROW PTS MOTHER WILL REINFORCE TEACH THROUGHOUT THE WEEK AND IF PT IS ABLE TO MANAGE INDEPENDENTLY, SHE WILL RETURN TO SCHOOL TUESDAY [facility] IS AWARE OF PLAN AND AGREEABLE Addendum entered by Miranda Marquez 11/07/23 13:10: NADYA SPOKE TO JETHRO GUERIN AT [facility], SHE EXPLAINED THEY ARE NOT ABLE TO HELP WITH THE IV MEDS, HOWEVER IF PT WAS ABLE TO MANAGE THE MED ON HER OWN AND HAD A [facility] OR [facility] RN COMING IN FOR LABS/DRESSING CHANGES, THEY WOULD BE FINE WITH IT PT DOES HAVE HER OWN ROOM AND WILL DO HER MEDS THERE. [facility] IS CONFIRMING IF THEY CAN PROVIDE A NURSE ONCE SHE IS BACK AT SCHOOL, IF NOT, A REFERRAL WILL ALSO BE MADE TO [facility]. Addendum entered by Miranda Marquez 11/07/23 10:54: CM ATTEMPTED TO REACH [facility] TO DISCUSS ANY POTENTIAL BARRIERS TO PT RETURNING TO SCHOOL WHILE RECEIVING IV ABX CM CALLED THE HEALTH SERVICES AT [facility] [phone] AND LEFT A MESSAGE REQUESTING A RETURN CALL. Addendum entered by Miranda Marquez 11/07/23 10:49: [facility] IS UNABLE TO PROVIDE NURSING SERVICES TO THE [facility] HAS ACCEPTED AND WILL PROVIDE SN FOR DRESSING CHANGES AND LABS Addendum entered by Miranda Marquez 11/07/23 09:06: PCP: SHENA ACOSTA IN [facility] Original Note: NADYA MET WITH PT AND PARENTS AT BEDSIDE TO DISCUSS DC PLAN PT WILL DC TO PARENTS HOME AT [address] [place] [id number], AND PLANS TO STAY THERE FOR A WEEK SHE WILL THEN RETURN TO SCHOOL AT [facility] [employer] THEY ARE AWARE [facility]EMA FROM [facility] WILL BE BEDSIDE BETWEEN 1030 AND 1130 HOURS FOR TEACHING THEY CONFIRM PTS MOTHER IS AN RN AND WILL BE ABLE TO ADMINISTER MEDS [facility] WILL CONFIRM THEIR ABILITY TO PROVIDE NURSING SERVICES FOR DRESSING CHANGES AND LABS PT ALSO AWAITING PICC PLACEMENT
[2023-11-07] MEDS: Escitalopram Oxalate 20 MG TABLET PO (09:18)
[2023-11-07] MEDS: 0.9 % Sodium Chloride Flush 3 ML SYRINGE IVFLUSH ×2 (09:18)
[2023-11-07] MEDS: Enoxaparin Sodium 40 MG/0.4 ML SYRINGE SUBCUT (09:18)
--- NOTE | 2023-11-07 11:16 | P.DS_ITS ---
DS: Providers Provider Date of Service: 11/07/23 Date of admission: 10/28/23 19:00 Primary care physician: Unknown Physician Consults: 11/03/23 12:54 Consult to Infectious Diseases Routine Consulting Provider: [facility] [place] [facility] Reason for consultation: bacteremia, PROTEIN SCIENTIST shunt, pneumonia Has provider been notified: No 11/04/23 14:13 Consult to Cardiology Routine Consulting Provider: [facility] [place] [facility] Reason for consultation: JUAQUIN to rule out endocarditis Has provider been notified: No DS: Diagnosis Discharge Diagnosis (1) Acute respiratory failure with hypoxia: Status: Acute (2) Pneumonia due to gram-positive bacteria: Status: Acute DS: Summary Hospital Course Hospital Course: History and physical as per admitting provider. 23-year-old female who is not able to give a history at this point.? Majority of the history obtained from the patient's mother who is at bedside.? Patient has an underlying 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 Postop complications of her glioma included NPH for which she had a PROTEIN SCIENTIST shunt placement.? 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 Patient is a college student, had reported to mom to have a cough, malaise for about a week, she finallywas able to go to the [facility] and she was found to be significantly ill therefore she was transferred to emergency room. In the ER she was noted to be hypoxic at 88% a room air, tachycardic 146 febrile with 102 degrees F.? Subsequently she became tachypneic at 30 breaths per minute.? Due to her respiratory distress patient was placed on CPAP and then switched to BiPAP. Initial gas showed pH was 7.3 and CO2 44 and pO2 of 68. Patient's workup revealed white count 72293, H and H of 10.5 and 33.8 respectively.? Bandemia of 7. ?Sodium 130, potassium 4.4, chloride 98, BUN 32, creatinine 0.91.? Random glucose 120.? SAT 54, ALT 203, troponin were 76 and 442, CRP 39 point 8, BNP 428, albumin 3.2. ?Respiratory panel negative for COVID. She underwent a CT angiogram, read as a limited study due to artifact.? No obvious large emboli.? Extensive confluent airspace opacity and bilateral hemithoraces of uncertain etiology.? Differential diagnosis ARDS, pulmonary edema, inflammatory, infectious process among others.? Recommendation was made to repeat the study in 24 hours. Patient was treated with vancomycin and cefepime, only 500 cc of fluids were given due to risk of fluid overload.? Currently the patient is arousable with light touch, follows basic commands although she is somewhat slow in comparison to her baseline but likely due to tiredness, otherwise able to answer yes and no questions and do basic maneuvers but unable to give a history. Patient will be transferred to the ICU for further care. 23-year-old woman admitted for acute hypoxemic respiratory failure secondary to bilateral pneumonia, respiratory viral panel positive for mycoplasma, blood cultures positive for MSSA and strep viridans. Initially treated in the ICU on BiPAP. She was switched to high-flow oxygen and subsequently down to nasal cannula on 11/03/23. At this time she was on room air. Home oxygen evaluation was suggested but patient and family declined, patient's oxygen saturation has been above 90%, therefore she can follow up with her primary care provider if there is any concern for ongoing hypoxia. She was transferred out of the ICU on 11/03/23 She was treated with multiple antibiotics during the hospital stay including ceftriaxone, Zosyn. She was also treated with IV steroids. Seen and evaluated by Cardiology who did not recommend echocardiogram. Has been treated with daptomycin and azithromycin. She was treated with 10 days total of the azithromycin and will continue treatment with daptomycin for a total of 28 days with 21 days remaining. She was noted to have sinus tachycardia, CTA was negative for PE. Tachycardia likely secondary to respiratory treatments and deconditioning, no indication for rate controlling medications at this time. Both CTA and venous Doppler ultrasound was negative for DVT or PE. Midline placed 11/07/2023, maybe removed by registered nurse/VNA after last dose of daptomycin. Transaminitis. LFTs trended down Microcytic anemia. No evidence of acute blood loss, likely due to acute medical illness, H&H stable and above transfusion threshold Morbid obesity. BMI 40.8. Weight/diet management History of glioma. Has a PROTEIN SCIENTIST shunt. Initially treated with rifampin due to bacteremia however this was discussed with Neurosurgery at [facility] and they thought that it was unlikely that the shunt was infected so there was no need for hospital transfer and rifampin was stopped. Time Attestation Discharge Coordination Time (in mins): 45 Quality: Safe Use of Opioids Does Pt have an Active Cancer Diagnosis on the Problem List?: No Quality: Stroke Does the patient have a stroke diagnosis?: No Physical Exam Vital Signs: Vital Signs: Last Vital Signs Temp 97.2 F 11/07/23 07:49 Pulse 106 H 11/07/23 07:49 Resp 20 11/07/23 07:49 BP 127/60 11/07/23 07:49 Pulse Ox 94 11/07/23 07:49 O2 Del Method Room Air 11/07/23 07:49 O2 Flow Rate 2 11/07/23 03:43 FiO2 45 11/03/23 11:00 BMI result Body Mass Index 40.8 Appearing in no acute distress head is normocephalic atraumatic eyes pupils are PERRLA sclera is anicteric mouth throat mucous membranes are intact and moist neck is supple no lymphadenopathy, no JVD noted lung sounds are clear to auscultation heart regular rate rhythm, clear S1, S2 positive bowel sounds, abdomen is soft, nontender neuro patient is alert x3, no focal deficits Midline IV Discharge Plan Discharge Anticipated Discharge Date/Time: 11/07/23 11:06 Patient Disposition: Home Health Service Discharge Diagnosis: Acute hypoxic respiratory failure Multifocal pneumonia MSSA and strep viridans bacteremia Sinus tachycardia Transaminitis Discharge Medications: New lorazepam 0.5 mg Tablet 0.5 mg PO Q8H PRN (Reason: Anxiety/Restlessness) Qty: 9 0RF albuterol sulfate 90 mcg/actuation HFA aerosol inhaler 1 inh inhalation QID PRN (Reason: shortness of breath or wheezing) Qty: 8.5 0RF (DME) B[employer]he[employer] MDI Spacer Spacer See Rx Instructions .Route Qty: 1 0RF Rx Instructions: As directed daptomycin in 0.9 % sod chlor 700 mg/100 mL piggyback 700 mg IV Q24H 21 Days Rx Instructions: administer over 30 mins Continued citalopram 40 mg tablet 40 mg PO DAILY ibuprofen 200 mg Tablet 200 mg PO Q6H PRN (Reason: Pain) Discharge Orders: Discharge Order (Routine); Ordered 11/07/23 Ordered By: Audelia Lynne Diet: Advance to usual diet Activity on Discharge: As tolerated Stand Alone Forms: Patient Portal Discharge page Print Language: Urdu Care Plan Goals: Daptomycin for total 28 days, 21 days remaining, end date 11/28/23 RN to remove midline after last dose of Daptomycin Health Concerns: Acute hypoxic respiratory failure Multifocal pneumonia MSSA and strep viridans bacteremia Sinus tachycardia Transaminitis Plan of Treatment: Follow-up with primary care provider as needed Take all medications as prescribed Assessment: See discharge summary
[2023-11-07 12:00] VITALS: BP 121/70; PULSE 109; RESP 20; TEMP 36.3; O2SAT 95
--- NOTE | 2023-11-07 12:24 | HO.MIDLINE_ITS ---
Midline Insertion MIDLINE INSERTION Diagnosis:PNEUMONIA GRAM +BACTERIA Indication: 10 DAYS OF ANTIBX--ZITHROMAX Pertinent Labs: REVIEWED Technique: Using sterile technique including cap and mask, glove and drape, the LEFT arm was prepped and draped in the usual sterile fashion of full barrier technique with CHG. Using ultrasound guidance, LEFT BASILIC vein access was obtained ON FIRST ATTEMPT. [id number] NON-PASV ST MIDLINE was positioned. The procedure was performed in RM 272. Ultrasound was used to document vein patency and for needle entry. A formal ultrasound picture was recorded. [employer] has released the line for use and it is currently dressed with a StatLock, Tegaderm, and CHG disc. Verification has been performed for blood return and line patency. Arm Circumference: 36.5CM Equipment: BARD POWERGLIDE ST MIDLINE CATHETER Catheter Type: [id number] NON-PASV ST MIDLINE POWERGLIDE Lot #: [id number]
[2023-11-07 13:51] LABS: Anion Gap 13 (12-20); Blood Urea Nitrogen 11 mg/dL (9-16); Calcium 9.9 mg/dL (8.4-10.2); Carbon Dioxide 26 mmol/L (22-29); Chloride 109 mmol/L (96-108); Creatinine Clr Calc Pharmacy 175.5; Estimated Glomerular Filt Rate > 60; Glucose Random 128 mg/dL (60-115); Potassium 3.6 mmol/L (3.3-5.1); Sodium 144 mmol/L (135-145)
[2023-11-07] MEDS: DAPTOmycin 700 MG in 0.9 % Sodium Chloride 50 ML 128 MG IV (14:04)
== END 2023-11-07 14:52 | disposition home health service (06) | DRG 720 ==
LOC: HO.ED 17:21 → HO.EDOVER 19:05 → HO.ICU 19:13 → HO.IMC 11-03 13:05
PROVIDERS: Emergency Medicine; Internal Medicine Critical Care Medicine; Physician Assistant Medical; Admitting Provider Internal Medicine Pulmonary Disease; Emergency Provider Emergency Medicine Emergency Medical Services; Visit Provider Nurse Practitioner Acute Care
DX: A41.9 Sepsis, unspecified organism (principal); J96.01 Acute respiratory failure with hypoxia; K72.00 Acute and subacute hepatic failure without coma; J15.7 Pneumonia due to Mycoplasma pneumoniae; B95.61 Methicillin susceptible Staphylococcus aureus infection as the cause of diseases classified elsewhere; D50.9 Iron deficiency anemia, unspecified; R00.0 Tachycardia, unspecified; B95.4 Other streptococcus as the cause of diseases classified elsewhere; G91.2 (Idiopathic) normal pressure hydrocephalus; E66.01 Morbid (severe) obesity due to excess calories; Z68.41 Body mass index [BMI] 40.0-44.9, adult; Z20.822 Contact with and (suspected) exposure to COVID-19; Z86.39 Personal history of other endocrine, nutritional and metabolic disease; Z86.011 Personal history of benign neoplasm of the brain; Z98.2 Presence of cerebrospinal fluid drainage device; Z79.899 Other long term (current) drug therapy
CPT/HCPCS: 0241U; 36410; 36415; 71275; 80048; 80053; 80076; 81001; 82803; 83540; 83605; 83690; 83735; 83880; 84100; 84145; 84443; 84484; 85007; 85025; 85027; 85379; 85610; 85652; 86140; 87040; 87070; 87077; 87147; 87186; 87205; 87633; 87640; 87641; 93005; 93306; 93970; 94660; 99285; J0131; J0456; J0690; J0692; J0696; J0737; J0878; J1100; J1120; J1170; J1650; J1940; J2020; J2060; J2405; J2543; J2919; J3010; J3370; J7120; P9047; Q9957; Q9967

== ENCOUNTER 2023-10-28 19:00 | Outpatient (BNV) | payer BC, SELFPAY | END 2023-11-01 07:00 | PROVIDERS: Admitting Provider Internal Medicine Pulmonary Disease; Emergency Provider Emergency Medicine Emergency Medical Services; Visit Provider Internal Medicine Cardiovascular Disease | DX: R78.81 Bacteremia (principal); B95.61 Methicillin susceptible Staphylococcus aureus infection as the cause of diseases classified elsewhere | CPT/HCPCS: 93306 ==

== ENCOUNTER → 2023-10-28 19:00 | Outpatient (BNV) | payer BC, SELFPAY | PROVIDERS: Admitting Provider Internal Medicine Pulmonary Disease; Emergency Provider Emergency Medicine Emergency Medical Services; Visit Provider Internal Medicine | DX: J96.01 Acute respiratory failure with hypoxia (principal); J18.9 Pneumonia, unspecified organism; A41.9 Sepsis, unspecified organism | CPT/HCPCS: 99222; 99499 ==

== ENCOUNTER → 2023-10-28 19:00 | Outpatient (BNV) | payer BC, SELFPAY | PROVIDERS: Admitting Provider Internal Medicine Pulmonary Disease; Emergency Provider Emergency Medicine Emergency Medical Services; Visit Provider Internal Medicine Pulmonary Disease | DX: J96.01 Acute respiratory failure with hypoxia (principal); J15.9 Unspecified bacterial pneumonia; J18.9 Pneumonia, unspecified organism | CPT/HCPCS: 99291 ==

== ENCOUNTER → 2023-10-28 19:00 | Outpatient (BNV) | payer BC, SELFPAY | PROVIDERS: Admitting Provider Internal Medicine Pulmonary Disease; Emergency Provider Emergency Medicine Emergency Medical Services; Visit Provider Physician Assistant Medical | DX: J96.01 Acute respiratory failure with hypoxia (principal); A41.9 Sepsis, unspecified organism; J15.9 Unspecified bacterial pneumonia; J18.9 Pneumonia, unspecified organism; R50.9 Fever, unspecified | CPT/HCPCS: 99291; 99292 ==

== ENCOUNTER → 2023-10-28 19:00 | Outpatient (BNV) | payer BC, SELFPAY | PROVIDERS: Admitting Provider Internal Medicine Pulmonary Disease; Emergency Provider Emergency Medicine Emergency Medical Services; Visit Provider Physician Assistant Medical | DX: J96.01 Acute respiratory failure with hypoxia (principal); J18.9 Pneumonia, unspecified organism | CPT/HCPCS: 99232; 99239; 99499 ==

== ENCOUNTER → 2023-10-28 19:00 | Outpatient (BNV) | payer BC, SELFPAY | PROVIDERS: Admitting Provider Internal Medicine Pulmonary Disease; Emergency Provider Emergency Medicine Emergency Medical Services; Visit Provider Internal Medicine Cardiovascular Disease | DX: A41.9 Sepsis, unspecified organism (principal); R00.0 Tachycardia, unspecified | CPT/HCPCS: 99222 ==